=== PATIENT | male | born 1965 | race Caucasian/White ===

== ENCOUNTER → 2019-05-29 | Outpatient (CLI) | payer OTHER ==
[~2019-05-29] MED LIST: ACET-704 PO; MULT1CAP15 PO
--- NOTE | 2019-05-29 21:40 | PAIN ---
DATE OF SERVICE: 05/29/2019 INITIAL CONSULTATION FOR PAIN CLINIC CHIEF COMPLAINT: Low back pain, right greater than left. HISTORY OF PRESENT ILLNESS: This is a 53-year-old male who presents with history of pain in the low back, right side for about 4 years, not a result of any specific injury or action he is aware of, but much more noticeable with bending, stooping, weightbearing, especially with extension of the lumbar spine and axial loading in the low back. The patient reports the pain becoming more constant, sharp, stabbing, intermittent in intensity, worse with activity, bending, stooping or driving for long periods. The patient reports it does not awaken him from sleep at night, better with sitting or lying down, does not affect his bowel or bladder control or ability to walk significantly. He has had some stretching and therapy in the past, but nothing recently. He is doing stretching and strengthening on his own; however, with some heat application as well in the low back. He tried Tylenol No. 3. Also, hydrocodone, Advil which did not help significantly. He is also taking a muscle relaxer which his primary care physician has given him, which helps only very mildly as well. The patient continues to do stretching and strengthening every day. Reports that the only way to get through the pain is doing repetitive stretching of his low back and heat application. The patient reports no loss of motor function. Reports disability rating from 0-10, 10 being the worst, is a 5 with family and home responsibilities, 8 with recreation, 6 with social activity, occupation and self-care, 4 with sexual behavior, 7 with life support activities. He did have an MRI scan of the lumbar spine showing diffuse lumbar spondylosis, most significant disease present at L3-L4 and L4-L5, generalized disk bulge eccentric towards the left with [id number] left neural foraminal narrowing at each level. PAST MEDICAL HISTORY: Significant for arthritis, depression. PREVIOUS SURGERY: Includes wisdom teeth extraction. CURRENT MEDICATIONS: Include Tylenol No. 3, [id number] Advil, Tylenol and muscle relaxer he is unsure of the name. ALLERGIES: THE PATIENT IS ALLERGIC TO TRAMADOL. FAMILY HISTORY: Significant for no major medical conditions or history that he lists. SOCIAL HISTORY: The patient drinks about 6 beers a day, does not use any illegal, illicit or recreational drugs. Does not smoke, does not use any other substances. He is and lives with his spouse, has 3 children living at home, lives in [place], [place]. Works as a box truck owner operator. REVIEW OF SYSTEMS: The patient's review of systems is positive for those items mentioned in history of present illness. All systems are reviewed and otherwise negative. It is complete, full and well documented on the patient's chart. PHYSICAL EXAMINATION: VITAL SIGNS: The patient's blood pressure is 156/86, pulse 83, respirations 16, temperature 98.2 degrees Fahrenheit, height is 6 feet and weight is 240 pounds. GENERAL: The patient is awake, alert, oriented, appropriate, very pleasant demeanor. HEENT: Shows normocephalic, atraumatic. Extraocular movements are intact and symmetrical. Oral cavity: Mucous membranes moist and pink. Dentition is intact. NECK: Shows anterior throat supple without palpable lymphadenopathy noted. Swallow reflex symmetrical. CHEST: Shows normal on inspection. Breath sounds are clear bilaterally. HEART: Shows S1, S2 clear. No murmurs auscultated. ABDOMEN: Soft, nontender, nondistended. No palpable organomegaly is noted. No rebound or guarding demonstrated. BACK: Shows spine grossly in the midline. Normal-appearing thoracic kyphosis and lumbar lordotic curvature. Lumbar paraspinous muscle shows symmetrical on inspection, with palpation shows some moderate tenderness diffusely bilaterally going diffusely without significant radiation. The patient's sacroiliac region as well as spinous processes are nontender with palpation as well. The patient has good rotational motion of lumbar spine with some moderate tenderness with rotation past 10 degrees to the right as well as extension very significant pain on the right side greater than the left with extension greater than 10 degrees, better with forward flexion and left lateral rotation is mildly tender. EXTREMITIES: The patient's lower extremities show deep tendon reflexes at 2+ in the patellar, 1+ tendo-calcaneus tendons. Motor exam is strong with 5/5 dorsiflexion, extension, quadriceps and hamstring flexion symmetrical. Peripheral pulses are 1+ posterior tibia. No peripheral edema is noted. Lower extremities are warm and dry to touch, equal in color and appearance. Straight leg raising noted to be negative for reproduction of radicular symptoms. Gaenslen's and Eduardo's maneuvers are negative bilaterally as well. The patient's skin shows warm and dry, good turgor. No edema. No sores, rashes or bruising throughout. IMPRESSION: This is a 53-year-old male with: 1. Approximately 4-year history of history of low back pain, worse on the right than the left without radiation to lower extremities. 2. Arthritis. 3. History of depression. 4. MRI scan of lumbar spine as noted. PLAN: Options were discussed with the patient including conservative medical managements, physical therapies and interventional techniques. He would like to pursue interventional techniques. We discussed lumbar facet joint injections on the right and left sides. He is having some pain on both sides of the low back consistent with axial loading of the lumbar spine and significant increase in pain consistent with facet syndrome and without radiation to lower extremities. The patient will continue doing strengthening and stretching exercises on his own as well as heat application to the low back. The patient will also try Medrol Dosepak. The patient was given instruction as well as side effects to be aware of with the medication and will plan on bilateral L4-L5 and L5-S1 facet joint injections on the patient's return. DANISHA MASON MD DR: HAYLEY/keshia JOB#: [id number] / [id number]
== END | disposition home or self-care (01) ==
LOC: PNCL 12:37
PROVIDERS: ATTEND Anesthesiology
DX: M54.5 Low back pain (principal); F32.9 Major depressive disorder, single episode, unspecified; M19.90 Unspecified osteoarthritis, unspecified site; Z88.8 Allergy status to other drugs, medicaments and biological substances
CPT/HCPCS: G0463

== ENCOUNTER → 2019-06-12 | Outpatient (CLI) | payer OTHER ==
[~2019-06-12] MED LIST changes: +BUPIVACAINE MPF 0.25% 10 ML VIAL. ONE; +IOHEXOL 180 MG/ML 10 ML VIAL. ONE; +methylPREDNISolone ACETATE 40 MG/ML VIAL. ONE; +methylPREDNISolone ACETATE 80 MG/ML VIAL. ONE
--- NOTE | 2019-06-13 01:47 | PAIN ---
DATE OF SERVICE: 06/12/2019 PROGRESS NOTE FOR PAIN CLINIC DIAGNOSES: Lumbar spondylosis with lumbar and lumbosacral degenerative disk disease. HISTORY OF PRESENT ILLNESS: The patient is a 53-year-old male who returns for followup status post initial evaluation and preauthorization for bilateral lumbar facet joint injections. The patient has acquired that now and would like to proceed, still with pain, mainly on the right, but present bilaterally in the low back. The patient reports this as a 4-5 on a scale of 10 at its worst over the past week, 4-5 on an average, 2 at its least, and it is a 5 today. The patient reports it is aching, sharp, dull, and tight across the low back. No significant change from previous exam. The patient reports no new motor or sensory deficits, no new bowel or bladder incontinence or other complaints, worse with extension of the lumbar spine and axial loading, standing, walking, changing positions or sitting in the car for more than 20-30 minutes and it can exacerbate the pain as well. The patient is better with lying down. It does not generally awaken him from sleep at night recently. PHYSICAL EXAMINATION: VITAL SIGNS: The patient's blood pressure is 148/88, pulse 85, respirations 16, temperature 98.9 degrees Fahrenheit, and weight is 241 pounds. GENERAL: The patient is awake, alert, oriented, appropriate, and very pleasant demeanor. HEENT: Shows normocephalic, atraumatic. Extraocular movements are intact and symmetrical. Oral cavity shows mucous membranes moist and pink. Dentition is intact. NECK: Shows anterior throat supple without palpable lymphadenopathy noted. Swallow reflex symmetrical. CHEST: Shows normal on inspection. Breath sounds are clear to auscultation bilaterally. HEART: Shows S1 and S2 clear. No murmurs auscultated. ABDOMEN: Soft, nontender, and nondistended. BACK: Shows spine grossly in the midline. Lumbar paraspinous muscle shows symmetrical on inspection, with palpation shows some moderate tenderness diffusely in the middle and lower distribution of the paraspinous muscles, more on the right than the left, but is symmetrical without evidence of atrophy or hypertrophy. The patient has good rotational motion, but moderate tenderness with right lateral rotation past 10 degrees as well as extension of the lumbar spine with significant pain bilaterally, again worse on the right than the left. It is better with forward flexion at 45 degrees. EXTREMITIES: The patient's lower extremities show deep tendon reflexes are 2+ in the patellar and tendo-calcaneus tendons are 1+. Motor exam is strong with 5/5 dorsiflexion, extension, quadriceps and hamstring flexion. Peripheral pulses are 1+ posterior tibia. No peripheral edema is noted bilaterally. Options were discussed with the patient. The patient's old chart was reviewed as well as his current medication regimen updated. Current review of systems is updated today as well. We will proceed with bilateral L4-L5 and L5-S1 facet joint injections with fluoroscopic guidance. Risks were again discussed including, but not limited to bleeding, infection, possibility of epidural hematoma, subsequent neurological compromise, dural puncture, headaches, spinal cord and/or nerve damage, side effects of steroid medication and poor results regarding pain control. The patient understands and wished to proceed. The patient will return to clinic in approximately 2 weeks for followup. He was counseled on return appointment, activity level and side effects to be aware of. DIAGNOSIS: Lumbar and lumbosacral spondylosis. PROCEDURE: Bilateral L4-L5 and L5-S1 facet joint injections using C-arm fluoroscopic guidance under sterile prep and drape using local anesthetic. MEDICATION INJECTED: A total of 120 mg Depo-Medrol plus 4 mL of 0.25% bupivacaine and 2 mL of contrast. CONDITION AT DISCHARGE: Stable. The patient tolerated procedure well and had no complications. DANISHA MASON MD DR: HAYLEY/keshia JOB#: [id number] / [id number]
== END ==
LOC: PNCL 13:40
PROVIDERS: ATTEND Anesthesiology
DX: M47.817 Spondylosis without myelopathy or radiculopathy, lumbosacral region (principal); M51.37 Other intervertebral disc degeneration, lumbosacral region
CPT/HCPCS: 64493; 64494; J1030; J1040; J3490; Q9965

== ENCOUNTER → 2019-06-26 | Outpatient (CLI) | payer OTHER ==
[~2019-06-26] MED LIST changes: -BUPIVACAINE MPF 0.25% 10 ML VIAL. ONE; -IOHEXOL 180 MG/ML 10 ML VIAL. ONE; -methylPREDNISolone ACETATE 40 MG/ML VIAL. ONE; -methylPREDNISolone ACETATE 80 MG/ML VIAL. ONE
--- NOTE | 2019-06-26 23:03 | PAIN ---
DATE OF SERVICE: 06/26/2019 PROGRESS NOTE FOR PAIN CLINIC DIAGNOSES: Lumbar spondylosis with lumbar and lumbosacral spondylosis and degenerative disk disease. HISTORY OF PRESENT ILLNESS: The patient is a 53-year-old male who returns for followup status post bilateral L4-L5 and L5-S1 facet joint injections on 06/12/2019. The patient did very well and reports about 90% improvement overall after the injection, still about 90% after 2 weeks on followup today. The patient reports he has been increasing his activity with greater ease and comfort, doing work activities, household activities, reaching, bending with much greater ease and comfort, sleeping well at night, it does not awaken him from sleep, and doing pretty much all of his normal activities as he pleases without any significant limitation. The patient reports his pain is worse at a 2 on a scale of 10 in the past week, averages 0-1 and least as a 0, currently it is 0 on a scale of 10. The patient reports it is aching, dull and tight when it does occur very infrequently. The patient did some raking of leaves and uses more to take up leaves in the yard about a week ago with no exacerbation of pain, which normally, he reports, would have been significant before he would have had to rest for the next day or so. The patient is very pleased with his progress, reports no new motor or sensory deficits, no bowel or bladder incontinence or other complaints. PHYSICAL EXAMINATION: VITAL SIGNS: The patient's blood pressure is 144/95, pulse 72, respirations 18, temperature is 98.2 degrees Fahrenheit, height is 6 feet, and weight is 238 pounds. GENERAL: The patient is awake, alert, oriented, appropriate, very pleasant demeanor. HEENT: Head is normocephalic, atraumatic. Extraocular movements are intact and symmetrical. Oral cavity: Mucous membranes moist and pink. Dentition is intact. NECK: Shows anterior throat supple without palpable lymphadenopathy noted. Swallow reflex symmetrical. CHEST: Shows normal on inspection. Breath sounds are clear bilaterally. HEART: Shows S1, S2 clear. No murmurs auscultated. ABDOMEN: Soft, nontender, nondistended. No palpable organomegaly is noted. No rebound or guarding demonstrated. BACK: Midline lumbar paraspinous muscle shows symmetrical on inspection, with palpation shows some very mild tenderness with prolonged deep palpation in the lower lumbar distribution bilaterally. No atrophy or hypertrophy. No asymmetry. The patient has full rotational motion of lumbar spine, both laterally greater than 10 degrees right and left as well as extension greater than 10 degrees with only minimal exacerbation of pain. No pain with forward flexion at 45 degrees. EXTREMITIES: Lower extremities show deep tendon reflexes at 2+ in the patellar, 1+ tendo-calcaneus tendons. Motor exam is strong with 5/5 dorsiflexion, extension and equal. Peripheral pulses are 1+. No peripheral edema is noted. DISCUSSION: Options were discussed with the patient. The patient's old chart was reviewed as his current medication regimen updated. Current review of systems updated today as well. We will hold on any further injections at this time as the patient has gotten 90% improved over the past 2 weeks. We did discuss repeating facet joint injections if the pain returns and the patient was encouraged to increase his activity as tolerated with some caution, but to do what is comfortable. The patient will continue with stretching and strengthening exercises as well as he has been doing this daily and walking daily. He will return to clinic on an as-needed basis at this time. DANISHA MASON MD DR: HAYLEY/keshia JOB#: [id number] / [id number]
== END | disposition home or self-care (01) ==
LOC: PNCL 14:41
PROVIDERS: ATTEND Anesthesiology
DX: M51.37 Other intervertebral disc degeneration, lumbosacral region (principal); M47.817 Spondylosis without myelopathy or radiculopathy, lumbosacral region
CPT/HCPCS: G0463

== ENCOUNTER → 2019-11-08 | Outpatient (CLI) | payer OTHER ==
--- NOTE | 2019-11-08 16:13 | PAIN ---
DATE OF SERVICE: 11/08/2019 PROGRESS NOTE FOR PAIN CLINIC DIAGNOSES: Lumbar and lumbosacral spondylosis with lumbar degenerative disk disease. HISTORY OF PRESENT ILLNESS: The patient is a 54-year-old male who returns for followup status post lumbar facet joint injections, most recently on 06/12/2019, patient did very well with about 90% improvement. We had seen him again on 06/26, he was doing very well. We decided to leave and the return as needed. The patient reports that now over the past month or so, the pain began to return in his low back, not to the point where it was back in May, but still noticeable bilaterally in the low back, right and left, somewhat worse on the right side, but present bilaterally. The patient reports it is becoming more noticeable with sitting for long periods, walking, changing positions, especially with extension of the lumbar spine and axial loading of the low back. The patient reports the pain was a 9 on a scale of 10 at its worst over the past week, 6 on average, 2 at its least and is a 6 today. The patient reports it is aching and tight, on and off in intensity, but always present. The patient reports it is generally better with sitting or lying down, as long as not for too long. It does not generally awaken him from sleep at night. The patient reports no specific radiation to the lower extremities at this time. PHYSICAL EXAMINATION: VITAL SIGNS: The patient's blood pressure is 142/100, pulse 75, respirations 18, temperature 99.2 degrees Fahrenheit, height 6 feet, weight is 241 pounds. GENERAL: The patient is awake, alert, oriented, appropriate, very pleasant demeanor. HEENT: Shows normocephalic, atraumatic. Extraocular movements are intact and symmetrical. Oral cavity: Mucous membranes moist and pink. Dentition is intact. NECK: Shows anterior throat supple without palpable lymphadenopathy noted. Swallow reflex symmetrical. CHEST: Shows normal on inspection. Breath sounds are clear bilaterally. HEART: Shows S1, S2 clear. No murmurs auscultated. ABDOMEN: Soft, nontender, nondistended. No palpable organomegaly is noted. No rebound or guarding demonstrated. BACK: Shows spine grossly in the midline. Normal-appearing thoracic kyphosis and lumbar lordotic curvature. Lumbar paraspinous muscle shows symmetrical on inspection, on palpation shows some moderate tenderness diffusely bilaterally but only diffusely without significant radiation. The patient has good rotational motion of lumbar spine, both laterally, right and left with some moderate tenderness with right and left lateral rotation slightly more to the right than the left at greater than 10 degrees. Significant tenderness with extension greater than 10 degrees with pain in the right and left low back, but without radiation to the lower extremities. The patient shows no specific tenderness over the sacrum or sacroiliac regions. EXTREMITIES: The patient's lower extremities show deep tendon reflexes at 2+ in the patellar, 1+ tendo-calcaneus tendons. Motor exam is strong with 5/5 dorsiflexion, extension, quadriceps and hamstring flexion symmetrical. Peripheral pulses are 1+ posterior tibia. No peripheral edema is noted bilaterally. Options were discussed with the patient. The patient's old chart was reviewed as his current medication regimen updated. Current review of systems updated today as well. We will proceed with preauthorization for bilateral L4-L5 and L5-S1 facet joint injections. The patient did very well with these when last performed in May with several months of decreased pain by about 90%. The patient will continue with stretching and strengthening exercises as he has been doing at home and will return to clinic in approximately 1 week after preauthorization. The patient was also given refill prescription for Tylenol No. 3 with instructions, side effects were discussed with medication as well. DANISHA MASON MD DR: HAYLEY/keshia JOB#: [id number] / [id number]
== END | disposition home or self-care (01) ==
LOC: PNCL 11:09
PROVIDERS: ATTEND Anesthesiology
DX: M47.817 Spondylosis without myelopathy or radiculopathy, lumbosacral region (principal); M51.36 Other intervertebral disc degeneration, lumbar region
CPT/HCPCS: G0463-25

== ENCOUNTER → 2019-11-22 | Outpatient (CLI) | payer OTHER ==
[~2019-11-22] MED LIST changes: +BUPIVACAINE MPF 0.25% 10 ML VIAL. ONE; +IOHEXOL 180 MG/ML 10 ML VIAL. ONE; +methylPREDNISolone ACETATE 40 MG/ML VIAL. ONE; +methylPREDNISolone ACETATE 80 MG/ML VIAL. ONE
--- NOTE | 2019-11-22 15:21 | PAIN ---
DATE OF SERVICE: 11/22/2019 PROGRESS NOTE FOR PAIN CLINIC DIAGNOSES: Lumbar and lumbosacral spondylosis with lumbar degenerative disk disease. HISTORY OF PRESENT ILLNESS: The patient is a 54-year-old male who returns for followup status post initial evaluation and preauthorization for lumbar facet injections today. The patient did very well on his last visit on 06/12/2019 with very good results, near 90% improvement for several months. The patient reports until about 4 weeks ago, the pain was significantly decreased. The patient has the pain returned now in the low back bilaterally, slightly worse on the right than the left, but present bilaterally, worse with extension of the lumbar spine, walking, standing, even sitting for prolonged periods, worse at the end of the day. The patient rates pain as an 8 on a scale of 10 at its worst over the past week, 6 on average, 1 at its least and is a 6 today. The patient reports it is aching, tight, dull, on and off in intensity. Generally, it does not awaken him from sleep at night, better with sitting or lying down, but sitting for prolonged periods more than 2-3 hours can exacerbate the pain as well. The patient reports no new bowel or bladder incontinence or other complaints. PHYSICAL EXAMINATION: VITAL SIGNS: The patient's blood pressure is 137/89, pulse 83, respirations 18, temperature 98.8 degrees Fahrenheit, height is 6 feet, weight is 244 pounds. GENERAL: The patient is awake, alert, oriented, appropriate, very pleasant demeanor. HEENT: Shows normocephalic, atraumatic. Extraocular movements are intact and symmetrical. Oral cavity shows mucous membranes moist and pink. Dentition is intact. NECK: Shows anterior throat supple without palpable lymphadenopathy noted. Swallow reflex symmetrical. CHEST: Shows normal on inspection. Breath sounds are clear bilaterally. HEART: Shows S1, S2 clear. No murmurs auscultated. ABDOMEN: Soft, nontender, nondistended. No palpable organomegaly is noted. No rebound or guarding demonstrated. EXTREMITIES: The patient's lower extremities show deep tendon reflexes 2+ in the patellar, 1+ tendo-calcaneus tendons. Motor exam is strong with 5/5 dorsiflexion, extension, quadriceps and hamstring flexion symmetrical. Peripheral pulses are 1+ posterior tibia. No peripheral edema is noted bilaterally. Options were discussed with the patient. The patient's old chart was reviewed as his current medication regimen updated. Current review of systems updated today as well and we will proceed with bilateral L4-L5 and L5-S1 facet joint injections today with fluoroscopic guidance. Risks were again discussed including, but not limited to bleeding, infection, possibility of epidural hematoma, subsequent neurological compromise, dural puncture, headaches, spinal cord and/or nerve damage, side effects of steroid medication and poor results regarding pain control. The patient understands and wished to proceed. The patient will return to clinic in approximately 2 weeks for followup. He was counseled on return appointment, activity level and side effects to be aware of. DIAGNOSES: Lumbar and lumbosacral spondylosis. PROCEDURE: Bilateral L4-L5 and L5-S1 facet joint injections using C-arm fluoroscopic guidance under sterile prep and drape using local anesthetic. MEDICATION INJECTED: A total of 120 mg Depo-Medrol plus 4 mL of 0.25% bupivacaine, 1 mL at each level after negative aspiration at each injection site and a total of 2 mL of contrast. CONDITION AT DISCHARGE: Stable. The patient tolerated procedure well, had no complications. DANISHA MASON MD DR: HAYLEY/keshia JOB#: [id number] / [id number]
== END ==
LOC: PNCL 13:43
PROVIDERS: ATTEND Anesthesiology
DX: M47.817 Spondylosis without myelopathy or radiculopathy, lumbosacral region (principal); M51.36 Other intervertebral disc degeneration, lumbar region
CPT/HCPCS: 64493; 64494; 64495; J1030; J1040; J3490; Q9965

== ENCOUNTER → 2020-04-10 | Outpatient (CLI) | payer OTHER ==
[~2020-04-10] MED LIST changes: -BUPIVACAINE MPF 0.25% 10 ML VIAL. ONE; -IOHEXOL 180 MG/ML 10 ML VIAL. ONE; -methylPREDNISolone ACETATE 40 MG/ML VIAL. ONE; -methylPREDNISolone ACETATE 80 MG/ML VIAL. ONE
--- NOTE | 2020-04-10 13:39 | PDOC ---
Progress Note - Pain Clinic Date of Service: DOS: DATE: 04/10/20 TIME: 13:34 Diagnosis: Dx: Lumbar and lumbosacral spondylosis with degenerative disc disease History or Present Illness: HPI: 54-year-old male returns follow-up status post bilateral L4-5 and L5-S1 facet thalia int injections most recently November 22, 2019 patient reports about 90% improvement for almost 5 weeks following the injection. Patient reports pain is returning now more on the right side than the left is been several months since injections returning now over the past few weeks in the low back itself without radiation to the lower extremities present on the left side as well but mostly on the right. This is worse with standing walking especially toward the end of the day by mouth 7 8 PM patient reports he feels good during the day but by that time the pain is increasing fairly significantly especially with extension and axial loading lumbar spine. Patient rates a 10 on scale 10 is worse over the past week 8 on average to its least is an 8 today patient describes pain as sharp and aching dull at times stabbing and becoming constant with activity. Patient reports during the day he feels fairly well as long as he keeps moving if he sits for more than about 30 minutes though the pain does exacerbate. Patient r eports it generally does not awaken her from sleep is better with laying down or short periods of time sitting. Patient ports no new motor or sensory deficits no new bowel or bladder incontinence or other complaints. Physical Exam: VS: Pressure is 141/101 pulse 79 respirations 18 temperature 90.8 F height 6 foot weight is 247 pounds PE: PHYSICAL EXAMINATION: GENERAL: The patient is awake, alert, oriented, appropriate, very pleasant demeanor HEENT: Shows normocephalic, atraumatic. Extraocular movements are intact and symmetrical. Oral cavity: Mucous membranes moist and pink. NECK: Shows anterior throat supple without palpable lymphadenopathy noted. Swallow reflex symmetrical. CHEST: Shows normal on inspection. Breath sounds are clear bilaterally, no rales rhonchi wheezes auscultated. HEART: Shows S1, S2 clear. No murmurs auscultated. ABDOMEN: Soft, nontender, nondistended, obese. No palpable organomegaly is noted. No rebound or guarding demonstrated. BACK: Shows spine grossly in the midline. Normal-appearing cervical lordotic curvature. There is slightly increased thoracic kyphosis, some minor flattening of the lumbar lordotic curvature. Lumbar paraspinous muscles show symmetrical on inspection, on palpation shows some moderate tenderness diffusely throughout the upper, middle and lower distribution of the paraspinous muscles bilaterally and also into the lower thoracic paraspinous musculature, firm and tender, but without specific trigger points, without radiation of pain. The patient has good rotational motion of the lumbar spine, both laterally as well as extension flexion with some moderate tenderness with extension at 10 degrees or greater with axial loading of the lumbar spine, right left lateral rotation shows some moderate tenderness with right lateral rotation past 10 degrees but minimal with rotation past 10 degrees on the left. Patient has good forward flexion of 45 degrees without significant pain reported. No tenderness over the spinous processes, sacrum or sacroiliac regions. EXTREMITIES: Lower extremities show deep tendon reflexes 2+ in the patellar and tendo calcaneus tendons. Motor exam is 5 on a scale of 5 with right dorsiflexion, extension, quadriceps and hamstring flexion and 5/5 on the left. Peripheral pulses are 1+ posterior tibial. No peripheral edema is noted bilaterally. Lower extremities are warm and dry to touch, equal in color and appearance. SKIN: Shows warm and dry, good turgor. No edema. No sores, rashes or bruising throughout. Procedure: Procedure: Options were discussed with the patient. Patient will chart was reviewed his current medication regimen updated current review of systems updated today as well. We will preauthorize patient for additional L4-5 and L5-S1 facet medial branch injections with C arm. As patient did very well with the last injections and has returned now of axial pain right greater than left. Patient will continue with stretching strength exercises walking daily exercise as tolerated. Patient also given prescription for Tylenol 3 with codeine with instructions side effects to be aware of. Patient return to clinic as scheduled we will plan on bilateral L4-5 and L5-S1 medial branch facet injections at that time. Medication Injected: Med Injected: None Condition at Discharge: Condition at Discharge: Condition at discharge is stable. DANISHA MASON MD Apr 10, 2020 13:39
== END ==
LOC: PNCL 12:53
PROVIDERS: ATTEND Anesthesiology
DX: M51.16 Intervertebral disc disorders with radiculopathy, lumbar region (principal); Z88.8 Allergy status to other drugs, medicaments and biological substances; Z79.899 Other long term (current) drug therapy
CPT/HCPCS: 99212; G0463

== ENCOUNTER → 2020-08-28 | Outpatient (CLI) | payer OTHER ==
[~2020-08-28] MED LIST changes: +BUPIVACAINE MPF 0.25% 10 ML VIAL. ONE; +LIDOCAINE 1% PF 2 ML VIAL. ONE; +LIDOCAINE 2% PF 5 ML VIAL. ONE; +methylPREDNISolone ACETATE 40 MG/ML VIAL. ONE; +methylPREDNISolone ACETATE 80 MG/ML VIAL. ONE
--- NOTE | 2020-08-28 14:42 | PDOC ---
Progress Note - Pain Clinic Date of Service: DOS: DATE: 08/28/20 TIME: 14:38 Diagnosis: Dx: Lumbar and lumbosacral spondylosis with lumbar degenerative disc disease History or Present Illness: HPI: 55-year-old male returns for follow-up status post bilateral lumbar facet injections with very good results approxi-90% improvement after the first injection and percent after the second injection but only lasting for about 4 to 5 weeks. Patient reports that the pain returned after about 5 weeks or so in the low back bilaterally right essentially equal to left worse with standing walking changing positions sitting for prolonged periods better with laying down generally is not awakening from sleep at night is worse with activity and standing. Patient reports is in the low back does not radiate to the lower extremities is right equal to left essentially worse with extension lumbar spine axial loading the low back as well as twisting and bending repetitively. Patient reports its aching and sharp tight across the low back again not radiating after the injections with diagnostic blocks he did very well with distance walking doing household activities work activities much greater ease and comfort and travel with greater ease and comfort as well. Patient reports no new motor or sensory deficits no new bowel or bladder incontinence or other complaints. Patient scribes pain is a 10 on scale 10 is worse over the past week 7 on average 3 at its least is a 7 today. Physical Exam: VS: Blood pressure is 138/72 pulse 91 respirations 18 temperature 98.6 F height is 6 foot weight is 243 pounds PE: PHYSICAL EXAMINATION: GENERAL: The patient is awake, alert, oriented, appropriate, very pleasant demeanor HEENT: Shows normocephalic, atraumatic. Extraocular movements are intact and symmetrical. Oral cavity: Mucous membranes moist and pink. Dentition is intact. NECK: Shows anterior throat supple without palpable lymphadenopathy noted. Swallow reflex symmetrical. CHEST: Shows normal on inspection. Breath sounds are clear bilaterally, no rales or rhonchi. HEART: Shows S1, S2 clear. No murmurs auscultated. ABDOMEN: Soft, nontender, nondistended, obese. No palpable organomegaly is noted. BACK: Shows spine grossly in the midline. Normal-appearing cervical lordotic curvature. There is slightly increased thoracic kyphosis, some flattening of the lumbar lordotic curvature. Lumbar paraspinous muscles show symmetrical on inspection, on palpation shows some moderate tenderness diffusely throughout the upper, middle and lower distribution of the paraspinous muscles without specific trigger points, without radiation of pain. The patient has good rotational motion of the lumbar spine, both laterally as well as extension and flexion, with significant pain with extension greater than 10 degrees and axial loading of the lumbar spine, right and left lateral rotation is tender as well equally right and left greater than 10 degrees without radiation of pain. No tenderness over the spinous processes, sacrum or sacroiliac regions. EXTREMITIES: Lower extremities show deep tendon reflexes 2+ in the patellar and tendo calcaneus tendons. Motor exam is 5 on a scale of 5 with right dorsiflexion, extension, quadriceps and hamstring flexion and 5/5 on the left. Peripheral pulses are 1+ posterior tibial. No peripheral edema is noted bilaterally. Lower extremities are warm and dry to touch, equal in color and appearance. SKIN: Shows warm and dry, good turgor. No edema. No sores, rashes or bruising throughout. Procedure: Procedure: Options were discussed with the patient. Patient chart reviews his current medication regimen updated current review of systems updated today as well. We will proceed with bilateral L4-5 and L5-S1 medial branch radiofrequency ablation today with fluoroscopic guidance. Risks were discussed including but not limited to: Bleeding, infection, possibility of epidural hematoma and subsequent neurological compromise, dural puncture, headaches, spinal cord and/or nerve damage, potential thermal damage to the surrounding tissues including motor nerve with permanent paralysis, and motor loss, side effects of steroid medication, and poor results regarding pain control. Patient understands and wished to proceed. Patient return to the clinic in approximate 4 weeks for follow-up, was counseled as to return appointment activity level and side effects to be aware of. Medication Injected: Med Injected: Under sterile prep and drape patient in prone position using C-arm fluoroscopic guidance patient's lumbar spine was visualized in both AP oblique and lateral views using 1% lidocaine to topically anesthetize the areas overlying the L3-4, L4-5 and L5-S1 facet joints at the point of the medial branches. Using a 22- gauge insulated radiofrequency needle with curved tips and stylette, the needles were advanced to contact the region of the facet with the medial branch targets. This was repeated at the L3-4 L4-5 and L5-S1 levels. Stylette was removed and using radiofrequency probe inserted into each needle individually at each level and then motor tested with no motor stimulation of the lower extremity. Patient did have some multifidus musculature contraction in the lumbar spine only but without radiation. At this time 1 cc of 2% lidocaine was then injected in each needle after motor testing but prior to radiofrequency ablation. Needle position was confirmed continuously throughout the radiofrequency ablation with both AP oblique and lateral views at each level. At this time radiofrequency ablation was carried out each level for 60 seconds at 80 C x 2 at each level w ith the tip of the needle turned 90 degrees after the first 60 seconds and then subsequent 60 seconds of radiofrequency ablation. Once radiofrequency ablation was completed solution containing 0.25% bupivacaine 1 cc and 20 mg Depo-Medrol was injected each level. Needle was then withdrawn. The procedure was repeated for the contralateral side as described as well. Patient had no paresthesias throughout the procedure no radiation of pain into the lower extremities no lower extremity motor response with motor testing bilaterally. Please see radiofrequency flowsheet for levels, temperatures, impedance, etc. Condition at Discharge: Condition at Discharge: Condition at discharge stable, patient tolerated procedure well and had no complications. DANISHA MASON MD Aug 28, 2020 14:42
== END | disposition home or self-care (01) ==
LOC: PNCL 13:07
PROVIDERS: ATTEND Anesthesiology
DX: M47.817 Spondylosis without myelopathy or radiculopathy, lumbosacral region (principal); M51.36 Other intervertebral disc degeneration, lumbar region; Z79.899 Other long term (current) drug therapy; Z88.8 Allergy status to other drugs, medicaments and biological substances
CPT/HCPCS: 64635; 64636; J1030; J1040; J3490; 77002

== ENCOUNTER → 2021-01-01 | Outpatient (CLI) | payer OTHER ==
[~2021-01-01] MED LIST changes: -BUPIVACAINE MPF 0.25% 10 ML VIAL. ONE; -LIDOCAINE 1% PF 2 ML VIAL. ONE; -LIDOCAINE 2% PF 5 ML VIAL. ONE; -methylPREDNISolone ACETATE 40 MG/ML VIAL. ONE; -methylPREDNISolone ACETATE 80 MG/ML VIAL. ONE
--- NOTE | 2021-01-01 14:05 | PDOC ---
Progress Note - Pain Clinic Date of Service: DOS: DATE: 01/01/21 TIME: 13:58 Diagnosis: Dx: Lumbar and lumbosacral spondylosis Lumbar radiculopathy with lumbar degenerative disc disease History or Present Illness: HPI: 55-year-old male returns for follow-up status post lumbar facet medial branch blocks and radiofrequency ablation on August 28, 2020. Patient reports is about 90% improvement but only for about a month after the procedure pain returned when he was doing some work on his [place] and the pain returned fairly quickly in the low back worse on the right than the left but also now radiating to bilateral lower extremities again worse on the right side than the left in the posterior gluteus posterior thigh posterior lateral thigh anterior thigh on the right side seminal left groin but mostly in the left low back. Patient reports is rating the right leg stabbing aching quality aching and sharp in the low back itself stabbing and shooting in the legs radiating can be constant or severe at times with activity. Patient reports is worse in the mornings and then worse in the evenings during the day when he is moving is not as bad as much more exacerbation was walking standing changing position especially bending or stooping or lifting items with the low back. Patient reports it wakes him from sleep about once or twice a night patient reports initially was doing much better with walking doing household activities work activities travel with greater ease and comfort now becoming much more debilitating and he is giving up some activities because of the pain. Patient has recently seen a neurosurgeon who is recommending conservative treatment at this time and in light of his previous treatment is recommending epidural steroid injection. Patient reports he has been diagnosed with hypothyroidism and does have Synthroid he is picking at that prescription later today has not started it yet. Reports he still doing exercises stretching and strengthening at home as he is learned in the past from physical therapy and whether continues to do these had not been significantly pain as well. Patient still taking Tylenol with codeine on a as needed basis with one bout 2-3 times a week. Physical Exam: VS: Blood pressure is 147/91 pulse 79 respirations 18 temperature 98.9 F height is 6 foot weight is 243 pounds PE: PHYSICAL EXAMINATION: GENERAL: The patient is awake, alert, oriented, appropriate, very pleasant in demeanor. HEENT: Shows normocephalic, atraumatic. Extraocular movements are intact and symmetrical. Oral cavity: Mucous membranes moist and pink. Dentition is intact. NECK: Shows anterior throat supple without palpable lymphadenopathy noted. Swallow reflex symmetrical. CHEST: Shows normal on inspection. Breath sounds are clear bilaterally. HEART: Shows S1, S2 clear. No murmurs auscultated. ABDOMEN: Soft, nontender, nondistended, obese. BACK: Shows spine grossly in the midline. Normal-appearing cervical lordotic curvature. There is slightly increased thoracic kyphosis, some slight flattening of the lumbar lordotic curvature. Lumbar paraspinous muscles show symmetrical on inspection, on palpation shows some moderate tenderness diffusely throughout the upper, middle and lower distribution of the paraspinous muscles without specific trigger points, without radiation of pain. The patient has good rotational motion of the lumbar spine, both laterally as well as extension and flexion with only mild pain with extension but not with forward flexion right or left lateral rotation. No tenderness over the spinous processes, sacrum or sacroiliac regions. EXTREMITIES: Lower extremities show deep tendon reflexes 2+ in the patellar and tendo calcaneus tendons. Motor exam is 5 on a scale of 5 with right dorsiflexion, extension, quadriceps and hamstring flexion and 5/5 on the left. Peripheral pulses are 1+ posterior tibial. No peripheral edema is noted bilate rally. Lower extremities are warm and dry to touch, equal in color and appearance. Straight leg raise noted to be positive on the right about 45 degrees, decreased with knee flexion, left side is negative. SKIN: Shows warm and dry, good turgor. No edema. No sores, rashes or bruising throughout. Procedure: Procedure: Options were discussed with patient. Patient chart was reviewed as was his current medication regimen and updated and current review of systems updated today. We will preauthorize patient for a lumbar epidural steroid injection as patient has clinical radicular symptoms in the right lower extremity L4-5 dermatomal distribution. Patient continue at this time with strengthening and stretching exercise as well as oral analgesics as currently and once preauthorized we will plan on translaminar approach L4-5 level lumbar epidural steroid injection at that time. Medication Injected: Med Injected: None Condition at Discharge: Condition at Discharge: Condition at discharge is stable. DANISHA MASON MD Jan 01, 2021 14:05
== END | disposition home or self-care (01) ==
LOC: PNCL 13:05
PROVIDERS: ATTEND Anesthesiology
DX: M51.16 Intervertebral disc disorders with radiculopathy, lumbar region (principal); M47.27 Other spondylosis with radiculopathy, lumbosacral region; Z79.899 Other long term (current) drug therapy; Z88.8 Allergy status to other drugs, medicaments and biological substances
CPT/HCPCS: 99212; G0463

== ENCOUNTER → 2021-02-06 | Outpatient (CLI) | payer OTHER ==
[~2021-02-06] MED LIST changes: +ACET1TAB33 PO; +IOHEXOL 180 MG/ML 10 ML VIAL. ONE; +LEVO25TA4 PO; +methylPREDNISolone ACETATE 80 MG/ML VIAL. ONE
--- NOTE | 2021-02-06 13:52 | PDOC ---
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 Patient reports pain the low back left lower extremity posterior gluteus posterior lateral thigh left anterior thigh anteromedial thigh with walking standing changing positions better with sitting or resting but wakes him from sleep least once at night patient reports does better with Tylenol 3 also stre tching strength exercises helped and sitting and relaxing seems to help as well it is much worse when he is on his feet walking standing. Patient reports the pain is severe can be stabbing aching the back of the leg radiating shooting as well on the left side. Patient reports no new motor or sensory deficits no new bowel or bladder incontinence. Physical Exam: VS: Blood pressure is 139/91 pulse 81 respirations 18 temperature 98.3 F weight is 243 pounds PE: PHYSICAL EXAMINATION: GENERAL: The patient is awake, alert, oriented, appropriate, very pleasant in demeanor HEENT: Shows normocephalic, atraumatic. Extraocular movements are intact and symmetrical. Oral cavity: Mucous membranes moist and pink. Dentition is intact. NECK: Shows anterior throat supple without palpable lymphadenopathy noted. Swallow reflex symmetrical. CHEST: Shows normal on inspection. Breath sounds are clear bilaterally. HEART: Shows S1, S2 clear. No murmurs auscultated. ABDOMEN: Soft, nontender, nondistended. No palpable organomegaly is noted. BACK: Shows spine grossly in the midline. Normal-appearing cervical lordotic curvature. There is slightly increased thoracic kyphosis, some minor flattening of the lumbar lordotic curvature. Lumbar paraspinous muscles show symmetrical on inspection, on palpation shows some moderate tenderness diffusely throughout the upper, middle and lower distribution of the paraspinous muscles, but without specific trigger points, without radiation of pain. The patient has good rotational motion of the lumbar spine, both laterally as well as extension and flexion with only mild pain with extension not forward flexion. No tenderness over the spinous processes, sacrum or sacroiliac regions. EXTREMITIES: Lower extremities show deep tendon reflexes 2+ in the patellar and tendo calcaneus tendons. Motor exam is 5 on a scale of 5 with right dorsiflexion, extension, quadriceps and hamstring flexion and 5/5 on the left. Peripheral pulses are 1+ posterior tibial. No peripheral edema is noted bilaterally. Lower extremities are warm and dry to touch, equal in color and appearance. SKIN: Shows warm and dry, good turgor. No edema. No sores, rashes or bruising throughout. Procedure: Procedure: Options discussed with the patient. Patient's old chart was reviewed his current medication regimen updated current review of systems updated today as well. We will proceed with a lumbar epidural steroid injection today with fluoroscopic guidance. Risks were discussed including but not limited to: Bleeding, infection, possibility of epidural hematoma and subsequent neurological compromise, dural puncture, headaches, spinal cord and/or nerve damage, side effects of steroid medication, and poor results regarding pain control. Patient understands and wished to proceed. Patient will return to clinic in approximate 2 weeks for follow-up, was counseled as to return appointment activity level and side effects to be aware of. Medication Injected: Med Injected: Procedure is lumbar epidural steroid injection under local anesthetic using sterile prep and drape at the L4-5 level using C-arm fluoroscopic guidance in both AP and lateral views medications injected is 120 mg Depo-Medrol +10mL preservative-free normal saline and 2 mL contrast- condition at discharge is stable patient tolerated procedure well had no complications. Condition at Discharge: Condition at Discharge: Condition at discharge stable, patient already the procedure well and had no complications. DANISHA MASON MD Feb 06, 2021 13:52
--- NOTE | 2021-02-06 13:53 | PDOC4 ---
Procedure Note: ICD 10 Code: ICD 10 Code: M54.16 M51.36 7.816 Procedure Note: Patient was consented for lumbar epidural steroid injection with fluoroscopic guidance. Risks were discussed including but not limited to: Bleeding, infection, possibility of epidural hematoma and subsequent neurological compromise, dural puncture, headaches, spinal cord and/or nerve damage, side effects of steroid medication, and poor results regarding pain control. Patient understands and wished to proceed. Procedure is lumbar epidural steroid injection under local anesthetic using st erile prep and drape at the L4-5 level using C-arm fluoroscopic guidance in both AP and lateral views medications injected is 120 mg Depo-Medrol +10mL preservative-free normal saline and 2 mL contrast- condition at discharge is stable patient tolerated procedure well had no complications. DANISHA MASON MD Feb 06, 2021 13:53
== END ==
LOC: PNCL 13:07
PROVIDERS: ATTEND Anesthesiology
DX: M51.16 Intervertebral disc disorders with radiculopathy, lumbar region (principal); M47.816 Spondylosis without myelopathy or radiculopathy, lumbar region
CPT/HCPCS: 62323; J1040; Q9965

== ENCOUNTER → 2021-03-06 | Outpatient (CLI) | payer OTHER ==
[~2021-03-06] MED LIST changes: -IOHEXOL 180 MG/ML 10 ML VIAL. ONE; -methylPREDNISolone ACETATE 80 MG/ML VIAL. ONE
--- NOTE | 2021-03-06 12:17 | PDOC ---
Progress Note - Pain Clinic Date of Service: DOS: DATE: 03/06/21 TIME: 12:14 Diagnosis: Dx: Lumbar radiculopathy with lumbar degenerative disc disease and lumbar spondylosis History or Present Illness: HPI: 55-year-old male returns for follow-up status post lumbar epidural straight injection x1. Patient reports about 90% improvement for the first 2 and half weeks the pain returning slightly now in the low back and left lower extremity but only slightly patient reports in each day is more noticeable but initially was doing much better with distance walking doing household activities traveling with greater ease and comfort and work activities patient reports that by the end of the day the pain is fairly significant now over the past few days he is taking half of a Tylenol 3 at night which helps him sleep. Patient reports the pain is a 7 on scale 10 is worse over the past week 5 on average 1 its least is a 5 today patient was aching sharp dull in the back shooting radiating in the left lower extremity lateral thigh anterior thigh medial thigh as well as across the low back. Patient reports no loss of motor function no bowel or bladder incontinence. Physical Exam: VS: Blood pressure is 151/76 pulse 84 respirations 18 temperature is 98.4 F weight is 239 pounds PE: PHYSICAL EXAMINATION: GENERAL: The patient is awake, alert, oriented, appropriate, very pleasant in demeanor HEENT: Shows normocephalic, atraumatic. Extraocular movements are intact and symmetrical. Oral cavity: Mucous membranes moist and pink. Dentition is intact. NECK: Shows anterior throat supple without palpable lymphadenopathy noted. Swallow reflex symmetrical. CHEST: Shows normal on inspection. Breath sounds are clear bilaterally, distant no rales or rhonchi. HEART: Shows S1, S2 clear. No murmurs auscultated. ABDOMEN: Soft, nontender, nondistended, obese. No palpable organomegaly is noted. BACK: Shows spine grossly in the midline. Normal-appearing cervical lordotic curvature. There is slightly increased thoracic kyphosis, some minor flattening of the lumbar lordotic curvature. Lumbar paraspinous muscles show symmetrical on inspection, on palpation shows some moderate tenderness diffusely throughout the upper, middle and lower distribution of the paraspinous muscles, but without specific trigger points, without radiation of pain. The patient has good rotational motion of the lumbar spine, both laterally as well as extension and flexion without significant difficulty. EXTREMITIES: Lower extremities show deep tendon reflexes 2 in the patellar and tendo calcaneus tendons. Motor exam is 5 on a scale of 5 with right dorsiflexion, extension, quadriceps and hamstring flexion and 5/5 on the left. Peripheral pulses are 1+ posterior tibial. No peripheral edema is noted bilaterally. Lower extremities are warm and dry to touch, equal in color and appearance. SKIN: Shows warm and dry, good turgor. No edema. No sores, rashes or bruising throughout. Procedure: Procedure: Options were discussed with the patient. Patient's old chart was reviewed as his current medication regimen updated current review of systems updated today as well. We will preauthorize patient for second lumbar epidural steroid injection as he did very well for the first 1 but with persistent radiculopathy in L4-5 dermatomal distribution on the left side. Patient continue with stretc lorna and strength exercise as well as oral analgesics as currently. Once approved, patient will return for translaminar approach L4-5 level lumbar epidural steroid injection with fluoroscopic guidance at that time. Medication Injected: Med Injected: None Condition at Discharge: Condition at Discharge: Condition at discharge is stable. DANISHA MASON MD Mar 06, 2021 12:17
== END ==
LOC: PNCL 11:40
PROVIDERS: ATTEND Anesthesiology
DX: M51.16 Intervertebral disc disorders with radiculopathy, lumbar region (principal); M47.816 Spondylosis without myelopathy or radiculopathy, lumbar region
CPT/HCPCS: 99212; G0463

== ENCOUNTER → 2021-03-20 | Outpatient (CLI) | payer OTHER ==
[~2021-03-20] MED LIST changes: +IOHEXOL 180 MG/ML 10 ML VIAL. ONE; +methylPREDNISolone ACETATE 80 MG/ML VIAL. ONE
--- NOTE | 2021-03-20 09:42 | PDOC ---
Progress Note - Pain Clinic Date of Service: DOS: DATE: 03/20/21 TIME: 09:39 Diagnosis: Dx: Lumbar radiculopathy with lumbar degenerative disc disease and lumbar spondylosis History or Present Illness: HPI: 55-year-old male returns for follow-up status post lumbar epidural steroid injection x1 which is doing better with about a 80% improvement overall but now down about 65% improvement in the low back and left lower extremity patient reports he had a new finding of some pain on the right side now especially when he is laying down at night and right posterior gluteus which is not there previously but only when he was laying down only happened a few times since his last visit patient reports that consistently though has pain in the left leg posterior gluteus lateral thigh anterior thigh medial thigh describes aching and dull in the back sharp and shooting in the in the leg tingling can be radiating constant can be severe with activity although still doing much better patient reports he still very pleased with his progress increase his activity distance walking doing household activities work activities much greater ease and comfort and for the most part sleeping well at night except with a new pain now. Right side as well. Patient reports no bowel or bladder incontinence. Physical Exam: VS: Blood pressure is 120/86 pulse 87 respirations 18 temperature 99.0 F height is 6 foot weight is 235 pounds. PE: PHYSICAL EXAMINATION: GENERAL: The patient is awake, alert, oriented, appropriate, very pleasant in demeanor HEENT: Shows normocephalic, atraumatic. Extraocular movements are intact and symmetrical. Oral cavity: Mucous membranes moist and pink. Dentition is intact. NECK: Shows anterior throat supple without palpable lymphadenopathy noted. Swallow reflex symmetrical. CHEST: Shows normal on inspection. Breath sounds are clear bilaterally, no rales rhonchi wheezes auscultated. HEART: Shows S1, S2 clear. No murmurs auscultated. ABDOMEN: Soft, nontender, nondistended, obese. No palpable organomegaly is noted. BACK: Shows spine grossly in the midline. Normal-appearing cervical lordotic curvature. There is slightly increased thoracic kyphosis, some flattening of the lumbar lordotic curvature, with well-healed surgical scarring noted. Lumbar paraspinous muscles show symmetrical on inspection, on palpation shows some moderate tenderness diffusely throughout the upper, middle and lower distribution of the paraspinous muscles bilaterally, but without specific trigger points, without radiation of pain. The patient has good rotational motion of the lumbar spine, both laterally as well as extension and flexion without significant difficulty. EXTREMITIES: Lower extremities show deep tendon reflexes 2+ in the patellar and tendo calcaneus tendons. Motor exam is 5 on a scale of 5 with right dorsiflexion, extension, quadriceps and hamstring flexion and 5/5 on the left. Peripheral pulses are 1+ posterior tibial. No peripheral edema is noted bilaterally. Lower extremities are warm and dry. SKIN: Shows warm and dry, good turgor. No edema. No sores, rashes or bruising throughout. Procedure: Procedure: Options were discussed with patient patient's old chart was reviewed as his current medication regimen updated current view of systems updated today as well. We will proceed with a lumbar epidural steroid injection today with flu oroscopic guidance risks were discussed including but not limited to: Bleeding, infection, possibility of epidural hematoma and subsequent neurological compromise, dural puncture, headaches, spinal cord and/or nerve damage, side effects of steroid medication, and poor results regarding pain control. Patient understands and wished to proceed. Patient will return to the clinic in a pproximate 2 weeks for follow-up, was counseled as return appointment, activity, and side effects to be aware of. Medication Injected: Med Injected: Procedure is lumbar epidural steroid injection under local anesthetic using sterile prep and drape at the L4-5 level using C-arm fluoroscopic guidance in both AP and lateral views medications injected is 120 mg Depo-Medrol +10mL preservative-free normal saline and 2 mL contrast- condition at discharge is stable patient tolerated procedure well had no complications. Condition at Discharge: Condition at Discharge: Condition at discharge stable, pain tolerated the procedure well and had no complications. DANISHA MASON MD Mar 20, 2021 09:42
--- NOTE | 2021-03-20 09:42 | PDOC4 ---
Procedure Note: ICD 10 Code: ICD 10 Code: M54.16 M51.36 7.816 Procedure Note: Patient was consented for lumbar epidural steroid action with fluoroscopic guidance. Risks were discussed including but not limited to: Bleeding, infection, possibility of epidural hematoma and subsequent neurological compromise, dural puncture, headaches, spinal cord and/or nerve damage, side effects of steroid medication, and poor results regarding pain control. Patient understands and wished to proceed. Procedure is lumbar epidural steroid injection under local anesthetic using sterile prep and drape at the L4-5 level using C-arm fluoroscopic guidance in both AP and lateral views medications injected is 120 mg Depo-Medrol +10mL preservative-free normal saline and 2 mL contrast- condition at discharge is stable patient tolerated procedure well had no complications. DANISHA MASON MD Mar 20, 2021 09:42
== END | disposition home or self-care (01) ==
LOC: PNCL 09:02
PROVIDERS: ATTEND Anesthesiology
DX: M51.16 Intervertebral disc disorders with radiculopathy, lumbar region (principal); M47.26 Other spondylosis with radiculopathy, lumbar region; Z79.899 Other long term (current) drug therapy; Z88.8 Allergy status to other drugs, medicaments and biological substances
CPT/HCPCS: 62323; J1040; Q9965

== ENCOUNTER → 2021-05-01 | Outpatient (CLI) | payer OTHER ==
[~2021-05-01] MED LIST changes: +HYDR-2761 PO; -IOHEXOL 180 MG/ML 10 ML VIAL. ONE; +TADA5TAB PO; +TEST5GEL TP; -methylPREDNISolone ACETATE 80 MG/ML VIAL. ONE
--- NOTE | 2021-05-01 14:20 | PDOC ---
Progress Note - Pain Clinic Date of Service: DOS: DATE: 05/01/21 TIME: 14:14 Diagnosis: Dx: Lumbar radiculopathy with lumbar degenerative disease and lumbar and lumbosacral spondylosis History or Present Illness: HPI: 55-year-old male returns for follow-up status post number epidural steroid injection x2. Patient reports he does very well about 90% improvement for about 3 weeks then the pain returns fairly quickly in the low back and into the left lower extremity greater than the right. Patient reports is still have sig nificant decrease in pain during that time. But pain returns fairly significantly patient reports aching sharp stabbing in the low back into the lower extremities again worse on the left than the right posterior gluteus posterior lateral thigh lateral anterior thigh anteromedial thigh and medial lower leg patient reports a 9 on scale 10 is worse over the past week 6 on average 3 distillation is a 6 today patient reports is worse with walking standing changing positions better with sitting or laying down generally does not awaken her from sleep at night. Patient reports when he is standing or walking and trying to walk more than about quarter mile to half a mile becomes a significant ache low back orients to stop and rest. Patient reports no bowel or bladder incontinence. Physical Exam: VS: Blood pressure is 146/86 pulse 85 respirations 18 temperature 98.9 F weight is 248 pounds PE: PHYSICAL EXAMINATION: GENERAL: The patient is awake, alert, oriented, appropriate, very pleasant in demeanor HEENT: Shows normocephalic, atraumatic. Extraocular movements are intact and symmetrical. Oral cavity: Mucous membranes moist and pink. Dentition is intact. NECK: Shows anterior throat supple without palpable lymphadenopathy noted. Swallow reflex symmetrical. CHEST: Shows normal on inspection. Breath sounds are clear bilaterally, no ral es rhonchi or wheezes auscultated bilaterally. HEART: Shows S1, S2 clear. No murmurs auscultated. ABDOMEN: Soft, nontender, nondistended, obese. No palpable organomegaly is noted. BACK: Shows spine grossly in the midline. Normal-appearing cervical lordotic curvature. There is slightly increased thoracic kyphosis, some flattening of the lumbar lordotic curvature. Lumbar paraspinous muscles show symmetrical on inspection, on palpation shows some moderate tenderness diffusely throughout the upper, middle and lower distribution of the paraspinous muscles, but without specific trigger points, without radiation of pain. The patient has good rotational motion of the lumbar spine, both laterally as well as extension and flexion without significant difficulty. No tenderness over the spinous processes, sacrum or sacroiliac regions. EXTREMITIES: Lower extremities show deep tendon reflexes 2+ in the patellar and tendo calcaneus tendons. Motor exam is 5 on a scale of 5 with right dorsiflexion, extension, quadriceps and hamstring flexion and 5/5 on the left. Peripheral pulses are 1+ posterior tibial. No peripheral edema is noted bilaterally. Lower extremities are warm and dry to touch, equal in color and appearance. SKIN: Shows warm and dry, good turgor. No edema. No sores, rashes or bruising throughout. Procedure: Procedure: Options were discussed with patient. Patient chart was reviewed his current medication regimen updated current review of systems updated today as well. We will hold any further injections at this time as well they have been helpful been fairly temporary and patient would like to revisit his neurosurgeon as he does have an L45 synovial cysts pressing into the left side of the nerve root at that level as well as some stenosis at L3-4. We will make these arrangements to follow-up with his neurosurgeon. Patient also will be electronically prescribed hydrocodone 5 mg with instructions side effects aware of discussed with medication Medication Injected: Med Injected: None Condition at Discharge: Condition at Discharge: Condition at discharge is stable. DAINSHA MASON MD May 01, 2021 14:20
== END | disposition home or self-care (01) ==
LOC: PNCL 13:31
PROVIDERS: ATTEND Anesthesiology
DX: M51.16 Intervertebral disc disorders with radiculopathy, lumbar region (principal); M47.27 Other spondylosis with radiculopathy, lumbosacral region; Z79.899 Other long term (current) drug therapy
CPT/HCPCS: 99212; G0463

== ENCOUNTER → 2021-05-19 | Outpatient (CLI) | payer OTHER ==
--- NOTE | 2021-05-19 16:44 | PDOC ---
Progress Note - Pain Clinic Date of Service: DOS: DATE: 05/19/21 TIME: 16:42 Diagnosis: Dx: Lumbar radiculopathy with lumbar degenerative disease and lumbar and lumbosacral spondylosis History or Present Illness: HPI: Telemedicine visit today via telephone with patient's identity verified with date of as well as full name, total time spent 14 minutes 55-year-old male with request for refill hydrocodone 5 mg patient distant very well with this taking less than 2 a day on most days but still significant pain in the low back and into the lower extremities. Patient reports no side effects with medication is doing fairly well his upcoming surgery with his neurosurgeon in approximate 3weeks. Patient did well after epidural steroid injection but the pain returned fairly significantly and fairly quickly after the last injection we had him follow-up with a neurosurgeon and surgery is now scheduled for lumbar decompression. Patient reports no new motor or sensory deficits no new side effects as well and as stated we will renew his medication with instructions side effects aware discussed. Patient will follow up at this point after surgery and or as a as needed basis. Physical Exam: PE: DANISHA MASON MD May 19, 2021 16:44
== END | disposition home or self-care (01) ==
LOC: PNCL 15:08
PROVIDERS: ATTEND Anesthesiology
DX: M51.16 Intervertebral disc disorders with radiculopathy, lumbar region (principal); M47.27 Other spondylosis with radiculopathy, lumbosacral region; Z79.899 Other long term (current) drug therapy
CPT/HCPCS: 99212; G0463

== ENCOUNTER → 2021-06-02 | Outpatient (CLI) | payer OTHER ==
[~2021-06-02] MED LIST changes: +ALPR0.5T PO; +DOCU-109 PO; +METH-562 PO; +OXYC1TAB15 PO
[2021-06-02 16:11] LABS: BASO % 0 % (0-3); EOS # 0.1 x10^3/uL (0.0-0.7); EOS % 1 % (0-3); HEMATOCRIT 42.6 % (39.0-53.0); HEMOGLOBIN 14.5 g/dL (13.0-17.5); LYMPH # 0.5 x10^3/uL (1.0-4.8); LYMPH % 10 % (24-48); MEAN CORPUSCULAR HEMOGLOBIN 34 pg (25-35); MEAN CORPUSCULAR HGB CONC 34 g/dL (31-37); MEAN CORPUSCULAR VOLUME 100 fL (79-100); MONO # 0.7 x10^3/uL (0.0-1.1); MONO % 16 % (0-9); NEUT # 3.4 x10^3/uL (1.8-7.7); NEUT % 73 % (31-73); PLATELET COUNT 141 x10^3/uL (140-400); RED BLOOD COUNT 4.26 x10^6/uL (4.30-5.70); RED CELL DISTRIBUTION WIDTH 12.1 % (11.5-14.5); WHITE BLOOD COUNT 4.6 x10^3/uL (4.0-11.0)
[2021-06-02 16:26] LABS: ALBUMIN 3.9 g/dL (3.4-5.0); ALBUMIN/GLOBULIN RATIO 0.9 (1.0-1.7); CREATININE 0.6 mg/dL (0.7-1.3); GFR 139.4; POTASSIUM 4.2 mmol/L (3.5-5.1); TOTAL BILIRUBIN 0.9 mg/dL (0.2-1.0); TOTAL PROTEIN 8.2 g/dL (6.4-8.2)
== END ==
LOC: SURGPAT 13:46
PROVIDERS: ATTEND Neurological Surgery
DX: Z01.812 Encounter for preprocedural laboratory examination (principal); M48.062 Spinal stenosis, lumbar region with neurogenic claudication; M71.30 Other bursal cyst, unspecified site; D17.79 Benign lipomatous neoplasm of other sites
CPT/HCPCS: 36415; 80053; 85025; 87641

== ENCOUNTER → 2021-06-05 | Outpatient (CLI) | payer OTHER ==
[~2021-06-05] MED LIST changes: -DOCU-109 PO; -METH-562 PO; -OXYC1TAB15 PO
--- NOTE | 2021-06-05 15:24 | PDOC ---
Progress Note - Pain Clinic Date of Service: DOS: DATE: 06/05/21 TIME: 15:22 Diagnosis: Dx: Lumbar radiculopathy with lumbar degenerative disc disease and lumbar and lumbosacral spondylosis History or Present Illness: HPI: Telemedicine visit today with patient with identity verified with full name as well as full date of , total time spent 12 minutes 55-year-old male via telemedicine visit today regarding upcoming surgery for lumbar laminectomy patient been taking hydrocodone 5 mg is requesting refill prior to the surgery which is in approximately 4 days. Patient has been doing well with hydrocodone which we prescribed for him the beginning of the month and reports no significant side effects except for some insomnia. Patient reports no constipation no dysphoria no memory difficulties itching or other nausea or vomiting. Patient reports still significant pain in the low back as was previously without specific deficits. Patient has had appropriate K tracks reporting to date as well. We will prescribe electronically hydrocodone 5 mg with instructions and side effects aware of discussed with patient and. Patient will follow up after surgery next week. DANISHA MASON MD Jun 05, 2021 15:24
== END | disposition home or self-care (01) ==
LOC: PNCL 11:27
PROVIDERS: ATTEND Anesthesiology
DX: M51.16 Intervertebral disc disorders with radiculopathy, lumbar region (principal); M47.26 Other spondylosis with radiculopathy, lumbar region; Z79.899 Other long term (current) drug therapy; Z72.89 Other problems related to lifestyle; Z88.8 Allergy status to other drugs, medicaments and biological substances
CPT/HCPCS: 99212; G0463

== ENCOUNTER 2021-06-09 07:17 | Observation (INO) | payer OTHER ==
[2021-06-04 09:17] VITALS: BP 144/82
--- NOTE | 2021-06-08 21:26 | PREOP HP ---
DATE OF SERVICE: 06/09/2021 HISTORY OF PRESENT ILLNESS: The patient is a pleasant 55-year-old who is having difficulty with back pain. The back pain occurs primarily with activities, although at night when he lies down to go to bed, his back is also very painful. He says his pain is a constant 3-6/10. When he becomes active with standing or walking, his pain has markedly increased. He was taking Tylenol No. 3, but that was becoming less effective and now he is taking hydrocodone. He has had 2 epidural steroid injections, each helped him for about a month. There is no significant pain in his lower extremities. CURRENT MEDICATIONS: Hydrocodone, prostate medication, multivitamin. PAST MEDICAL HISTORY: Gout. PAST SURGICAL HISTORY: No surgery documented. FAMILY HISTORY: Alzheimer's disease. SOCIAL HISTORY: Works in the home. . Denies tobacco use. Drinks 2 alcoholic beverages per day. ALLERGIES: TRAMADOL. REVIEW OF SYSTEMS: A 12-point review of systems was performed and is noncontributory except that mentioned above. PHYSICAL EXAMINATION: GENERAL: Alert, pleasant, in no acute distress. HEENT: Head is normocephalic, atraumatic. SKIN: Warm and dry. MUSCULOSKELETAL: Lumbar paraspinal muscle bulk is normal, restricted range of motion of the lumbar spine, [id number] tenderness of the lower lumbar spine with palpation, normal range of motion of the lower extremities bilaterally. EXTREMITIES: No clubbing, cyanosis or edema. NEUROLOGIC: Alert and oriented x 3. Normal recent and remote memory, strength is 5/5 in the lower extremities bilaterally, sensory is intact to light touch in lower extremities bilaterally. Reflexes were present and symmetric in the lower extremities bilaterally. Negative straight leg raising bilaterally. Normal gait. IMAGING: I reviewed a lumbar MRI scan from 12/03/2020. On that study, there is lumbar spinal stenosis and epidural lipomatosis at L3-4 and L4-5. Additionally, at L4-5 on the left, there is a large synovial cyst, which contributes to the lateral stenosis. ASSESSMENT AND PLAN: I am concerned that the epidural lipomatosis and lumbar stenosis at L3-4 and L4-5 is responsible for his pain. I recommended a laminectomy at L3-4 and L4-5 along with removal of synovial cyst at L4-5 to decompress the entire region and see if he can gain some relief. I did discuss this with him in detail. I spoke with him about the surgery and the risks. I explained the expected postoperative course. He understands and would like to go ahead. JUAN DR: Ct TID: [id number]
[2021-06-09] VITALS (11 sets, daily range): BP systolic 147–168; BP diastolic 78–90
[~2021-06-09] VITALS: Ht 180.3 cm; Wt 112.4 kg
[~2021-06-09 07:17] MED LIST changes: +BUPIVACAINE-EPI 0.5% 30 ML VIAL KIT. ONE; +DEXAMETHASONE SOD PHOS 4 MG/ML VIAL ONE; +GELATIN SPONGE SIZE 100. ONE; +GLYCOPYRROLATE 1 MG/5 ML VIAL. ONE; +HYDROmorphone 2 MG/ML VIAL IVP PRN; +IV RINGERS,LACTATED 1000ML 1,000 ML IV SCH; +KETAMINE HCL IN NACL, ISO-OSM 50 MG/5 ML SYRINGE ONE; +KETOROLAC 60 MG/2 ML VIAL. ONE; +LIDOCAINE 2% PF 5 ML VIAL. ONE; +MIDAZOLAM HCL/PF 2 MG/2 ML VIAL. ONE; +MORPHINE SULFATE 2 MG/ML INJ. IVP PRN; +NEOSTIGMINE 10 MG/10 ML VIAL. ONE; +ONDANSETRON PF 4 MG/2 ML VIAL. ONE; +PHENYLEPHRINE 10 MG/ML VIAL. ONE; +PROCHLORPERAZINE 10 MG/2 ML VIAL. IVP PRN; +PROPOFOL 10 MG/ML (20ML) VIAL. IV ONE; +PROPOFOL 50 ML IV ONE; +REMIFENTANIL 1 MG VIAL. IV ONE; +ROCURONIUM 50 MG/5 ML VIAL. ONE; +SEVOFLURANE > 120 MINUTES. IH ONE; +SUCCINYLCHOLINE 200 MG/10 ML VIAL. ONE; +THROMBIN TOPICAL 20,000 UNIT SPRAY.SYRN KIT TP ONE; +ceFAZolin SODIUM 1 GM in IV NORMAL SALINE 1000ML BAG 1,000 ML IRR ONE; +fentaNYL PF VIAL 100 MCG/2 ML VIAL IVP PRN; +fentaNYL PF VIAL 100 MCG/2 ML VIAL ONE
[2021-06-09] MEDS ORDERED: PROPOFOL 50 ML IV ONE ×2 (07:58→09:44)
[2021-06-09] MEDS ORDERED: HYDROmorphone 2 MG/ML VIAL ONE (10:34)
[2021-06-09] MEDS ORDERED: GELATIN SPONGE SIZE 100. ONE (12:37)
[2021-06-09] MEDS ORDERED: THROMBIN TOPICAL 20,000 UNIT SPRAY.SYRN KIT TP ONE ×2 (12:37→12:42)
[2021-06-09] MEDS ORDERED: MAGNESIUM HYDROXIDE 2,400 MG/30 ML ORAL.SUSP. PO PRN (13:15)
[2021-06-09] MEDS ORDERED: ALPRAZolam 0.5 MG TABLET PO PRN (13:15)
[2021-06-09] MEDS ORDERED: 0.9 % SODIUM CHLORIDE 10 ML DISP.SYRIN. IV PRN (13:15)
[2021-06-09] MEDS ORDERED: oxyCODONE/APAP 5/325 1 TAB TABLET PO PRN (13:15)
[2021-06-09] MEDS ORDERED: CALCIUM CARBONATE 500 MG TAB.CHEW PO PRN (13:15)
[2021-06-09] MEDS ORDERED: fentaNYL PF VIAL 100 MCG/2 ML VIAL IVP PRN (13:15)
[2021-06-09] MEDS: POTASSIUM CL 20MEQ D5-0.45NACL 1,000 ML IV SCH ×2 (13:15→19:31)
[2021-06-09] MEDS ORDERED: NALOXONE 0.4 MG/ML VIAL. IV PRN (13:15)
[2021-06-09] MEDS ORDERED: ACETAMINOPHEN 325 MG TABLET. PO PRN (13:15)
[2021-06-09] MEDS ORDERED: METHOCARBAMOL 750 MG TABLET PO PRN (13:15)
[2021-06-09] MEDS ORDERED: diphenhydrAMINE HCL 25 MG CAPSULE PO PRN (13:15)
[2021-06-09] MEDS ORDERED: ONDANSETRON PF 4 MG/2 ML VIAL. IVP PRN (13:15)
[2021-06-09] MEDS ORDERED: MAG HYDROX/ALUMINUM HYD/SIMETH 30 ML ORAL.SUSP PO PRN (13:15)
[2021-06-09] MEDS ORDERED: fentaNYL PF VIAL 100 MCG/2 ML VIAL ONE (15:38)
--- NOTE | 2021-06-09 15:58 | OP ---
DATE OF SURGERY: 06/09/2021 PREOPERATIVE DIAGNOSIS: Lumbar spinal stenosis/epidural lipomatosis L3 through L5 with synovial cyst, L4-L5, left. POSTOPERATIVE DIAGNOSIS: Lumbar spinal stenosis/epidural lipomatosis L3 through L5 with synovial cyst, L4-L5, left. OPERATIONS PERFORMED: Lumbar laminectomy, L3, L4, L5, with removal of epidural lipomatosis and decompression of dura and nerve roots with transforaminal exposure, left L4-L5 with decompression of the left L4 root and removal of synovial cyst. SURGEON: Cuong David M.D. MASTER SONAR TECHNICIAN: RAN Snow, assisted with the surgery, the exposure, the decompression as well as the closure. He also has EMG monitoring, SSEP monitoring, fluoroscopy, microscopic dissection. OPERATIVE INDICATIONS: The patient is a pleasant 55-year-old man who developed intractable back pain was found to have the above-mentioned findings and I recommended a lumbar laminectomy, the decompression of the dura and nerve roots for a transforaminal decompression of the left L4-L5. I spoke with him about the surgery and the risks, he wished to go ahead. DESCRIPTION OF PROCEDURE: Following general endotracheal anesthesia, the patient was positioned on the operating room table. We were careful to avoid any pressure points. His lumbar region was prepped and draped in the standard fashion. JCARLOS hose and AV impulse boots were applied for DVT prophylaxis. The microscope was draped, fluoroscopy was draped and brought into the field. Monitoring was established. Ancef 2 grams given less than 1 hour prior to initiation of surgery. Using fluoroscopic guidance, a midline incision was made extending from the L3 to L5. I dissected the skin, subcutaneous tissue, reflected the paraspinal muscles and placed Magana retractors. I brought in the microscope. The remainder of surgery was done with microscope using microscopic technique. I used the conical bur. I burred away the spinous processes behind the vertebral bodies of L3, L4 and L5. I then used the matchstick bur and thinned the overlying laminar bone. I then brought in Kerrisons, both the 2.5 and 4, and thinned the bone working from inferior to superiorly and fully decompressed the entire region bilaterally. There was significant epidural lipomatosis removed. I then went over to the left at L4-L5, confirming my location fluoroscopically. Using the high-speed air drill, I burred down the bone through this. I then visualized the L4 root and then it was removed. I removed cyst material, which was a degenerated ligament/scar or cyst. Following this, then the region was very well decompressed. I irrigated copiously and explored carefully. I was very pleased. I obtained excellent hemostasis and then closed the wound in layers with absorbable suture. The skin was closed with 4-0 subcuticular stitch. The surgery went well. There were no untoward events with the monitoring. I was quite pleased with the surgery. KODI/ARNOLDO DR: Barby TID: [id number] ASHOK
[2021-06-09] MEDS: DOCUSATE SODIUM 100 MG CAPSULE. PO SCH (19:21)
[2021-06-09] MEDS: oxyCODONE/APAP 5/325 1 TAB TABLET PO PRN (21:27)
[2021-06-09] MEDS ORDERED: ZOLPIDEM 5 MG TABLET. PO PRN ×2 (22:15)
[2021-06-09] MEDS ORDERED: cloNIDine HCL 0.1 MG TABLET PO PRN (22:30)
[2021-06-09] MEDS: FOLIC ACID 1 MG TABLET. PO SCH (22:46)
[2021-06-09] MEDS: THIAMINE 100 MG TABLET. PO SCH (22:47)
[2021-06-09] MEDS: MULTIVITAMIN with MINERAL TABLET. PO SCH (22:48)
--- NOTE | 2021-06-09 23:12 | PDOC2 ---
CONSULT Date of Consult Date of Consult DATE: 06/09/21 TIME: 23:09 Reason for Consult Reason for Consult: Medical management Referring Physician Referring Physician: Dr. Cuong David Identification/Chief Complaint Chief Complaint Lower back pain Source Source: Chart review, Patient History of Present Illness Reason for Visit: Mr Torres is a 55-year-old male with PMHx BPH, gout, and hypothyroidism admitted for worsening back pain worse upon standing, has failed outpatient conservative measures with LESI x2 and was admitted for progression of the pain requiring increasing outpatient doses of opioids increased from tylenol #3 to hydrocodone 5mg and is now status post L3-4-5 lumbar laminectomy. Seen postoperatively in consultation for worsening tremors and anxiety. He notes he was not 100% clear about his alcohol intake drinks more than 8 beers per day and usually upwards of 12. He is never experienced alcohol withdrawal but he does notice if he goes more than 4 hours without a drink for the morning he has tremors that affect his writing. No immediate postoperative complications noted patient feels his pain is actually better controlled now His tremors and anxiety are the worst of his symptoms. He feels a little short of breath as well. Not hypoxic Past Medical History Renal/: Benign prostatic enlarg. Endocrine: Hypothyroidism Past Surgical History Past Surgical History 06/09/2021 - S/p lumbar laminectomy, L3, L4, L5, with removal of epidural lipomatosis and decompression of dura and nerve roots with transforaminal exposure, left L4-L5 with decompression of the left L4 root and removal of synovial cyst. 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 mostly works from home now No ALCOHOL: heavy Drugs: None Lives: with Family () Domestic Violence: Neg Current Medications Current Medications Current Medications Fentanyl Citrate (Fentanyl 2ml Vial) 25 mcg PRN Q5MIN PRN IVP MILD PAIN 1-3; Start 06/09/21 at 06:00; Stop 06/10/21 at 05:59 Fentanyl Citrate (Fentanyl 2ml Vial) 50 mcg PRN Q5MIN PRN IVP MODERATE PAIN 4-6 Last administered on 06/09/21at 15:43; Start 06/09/21 at 06:00; Stop 06/10/21 at 05:59 Morphine Sulfate (Morphine Sulfate) 1 mg PRN Q10MIN PRN IVP SEVERE PAIN 7-10; Start 06/09/21 at 06:00; Stop 06/10/21 at 05:59 Ringer's Solution 1,000 ml @ 30 mls/hr Q24H IV Last administered on 06/09/21at 07:59; Start 06/09/21 at 06:00; Stop 06/09/21 at 17:59; Status DC Hydromorphone HCl (Dilaudid) 0.5 mg PRN Q10MIN PRN IVP SEVERE PAIN 7-10, 2nd CHOICE; Start 06/09/21 at 06:00; Stop 06/10/21 at 05:59 Prochlorperazine Edisylate (Compazine) 5 mg PACU PRN PRN IVP NAUSEA, MRX1; Start 06/09/21 at 06:00; Stop 06/10/21 at 05:59 Cefazolin Sodium/ Dextrose 50 ml @ 100 mls/hr 1X PREOP PRN IV PRIOR TO PROCEDURE Last administered on 06/09/21at 09:15; Start 06/09/21 at 06:00; Stop 06/09/21 at 18:00; Status DC Cefazolin Sodium 1 gm/Sodium Chloride 1,000 ml @ 1,000 mls/hr 1X ONCE IRR Last administered on 06/09/21at 09:39; Start 06/09/21 at 06:00; Stop 06/09/21 at 06:59; Status DC Gelatin (Gelfoam Size 100) 1 each STK-MED ONCE .ROUTE Last administered on 06/09/21at 09:39; Start 06/09/21 at 06:32; Stop 06/09/21 at 06:32; Status DC Bupivacaine HCl/ Epinephrine Bitart (Sensorcain-Epi 0.5% Kit) 30 ml STK-MED ONCE .ROUTE Last administered on 06/09/21at 09:39; Start 06/09/21 at 06:32; Stop 06/09/21 at 06:32; Status DC Ketorolac Tromethamine (Toradol Im) 60 mg STK-MED ONCE .ROUTE Last administered on 06/09/21at 09:39; Start 06/09/21 at 06:32; Stop 06/09/21 at 06:33; Status DC Thrombin 20,000 unit STK-MED ONCE TP Last administered on 06/09/21at 09:39; Start 06/09/21 at 06:32; Stop 06/09/21 at 06:33; Status DC Propofol (Diprivan) 200 mg STK-MED ONCE IV ; Start 06/09/21 at 05:43; Stop 06/09/21 at 07:44; Status DC Lidocaine HCl (Lidocaine Pf 2% Vial) 5 ml STK-MED ONCE .ROUTE ; Start 06/09/21 at 05:43; Stop 06/09/21 at 07:44; Status DC Ondansetron HCl (Zofran) 4 mg STK-MED ONCE .ROUTE ; Start 06/09/21 at 05:43; Stop 06/09/21 at 07:44; Status DC Phenylephrine HCl (Parish-Synephrine Inj) 10 mg STK-MED ONCE .ROUTE ; Start at 05:43; Stop 06/09/21 at 07:44; Status DC Propofol 50 ml @ As Directed STK-MED ONCE IV ; Start 06/09/21 at 05:43; Stop 06/09/21 at 07:44; Status DC Dexamethasone Sodium Phosphate (Decadron) 4 mg STK-MED ONCE .ROUTE ; Start 06/09/21 at 05:43; Stop 06/09/21 at 07:44; Status DC Sevoflurane (Ultane) 90 ml STK-MED ONCE IH ; Start 06/09/21 at 05:43; Stop 06/09/21 at 07:44; Status DC Fentanyl Citrate (Fentanyl 2ml Vial) 100 mcg STK-MED ONCE .ROUTE ; Start 06/09/21 at 05:44; Stop 06/09/21 at 07:44; Status DC Rocuronium [place] (Zemuron) 50 mg STK-MED ONCE .ROUTE ; Start 06/09/21 at 05:44; Stop 06/09/21 at 07:44; Status DC Midazolam HCl (Versed) 2 mg STK-MED ONCE .ROUTE ; Start 06/09/21 at 05:44; Stop 06/09/21 at 07:44; Status DC Remifentanil HCl (Ultiva) 1 mg STK-MED ONCE IV ; Start 06/09/21 at 05:44; Stop 06/09/21 at 07:44; Status DC Glycopyrrolate (Robinul) 1 mg STK-MED ONCE .ROUTE ; Start 06/09/21 at 05:44; Stop 06/09/21 at 07:45; Status DC Succinylcholine Chloride (Anectine) 200 mg STK-MED ONCE .ROUTE ; Start 06/09/21 at 05:45; Stop 06/09/21 at 07:45; Status DC Ketamine HCl (Ketamine) 50 mg STK-MED ONCE .ROUTE ; Start 06/09/21 at 05:51; Stop 06/09/21 at 07:52; Status DC Neostigmine Methylsulfate (Bloxiverz) 10 mg STK-MED ONCE .ROUTE ; Start 06/09/21 at 06:06; Stop 06/09/21 at 08:06; Status DC Propofol 50 ml @ As Directed STK-MED ONCE IV ; Start 06/09/21 at 07:58; Stop 06/09/21 at 09:58; Status DC Propofol 50 ml @ As Directed STK-MED ONCE IV ; Start 06/09/21 at 09:44; Stop 06/09/21 at 11:44; Status DC Hydromorphone HCl (Dilaudid) 2 mg STK-MED ONCE .ROUTE ; Start 06/09/21 at 10:34; Stop 06/09/21 at 12:34; Status DC Gelatin (Gelfoam Size 100) 1 each STK-MED ONCE .ROUTE Last administered on 06/09/21at 12:39; Start 06/09/21 at 12:37; Stop 06/09/21 at 12:37; Status DC Thrombin 20,000 unit STK-MED ONCE TP Last administered on 06/09/21at 12:39; Start 06/09/21 at 12:37; Stop 06/09/21 at 12:37; Status DC Thrombin 20,000 unit STK-MED ONCE TP Last administered on 06/09/21at 12:45; Start 06/09/21 at 12:42; Stop 06/09/21 at 12:42; Status DC Alprazolam (Xanax) 0.5 mg PRN Q6HRS PRN PO ANXIETY / AGITATION Last administered on 06/09/21at 19:22; Start 06/09/21 at 13:15; Stop 06/09/21 at 22:32; Status DC Levothyroxine Sodium (Synthroid) 150 mcg DAILY06 PO ; Start 06/10/21 at 06:00 Multivitamins (Thera M Plus) 1 tab DAILY PO ; Start 06/10/21 at 09:00; Status Cancel Fentanyl Citrate (Fentanyl 2ml Vial) 50 mcg PRN Q2HR PRN IVP PAIN; Start 06/09/21 at 13:15 Acetaminophen (Tylenol) 650 mg PRN Q6HRS PRN PO MILD PAIN / TEMP > 100.3'F; Start 06/09/21 at 13:15 Al Hydroxide/Mg Hydroxide (Mylanta Plus Xs) 30 ml PRN Q3HRS PRN PO HEARTBURN / GAS; Start 06/09/21 at 13:15 Calcium Carbonate/ Glycine (Tums) 500 mg PRN Q3HRS PRN PO INDIGESTION; Start 06/09/21 at 13:15 Diphenhydramine HCl (Benadryl) 25 mg PRN Q6HRS PRN PO ITCHING; Start 06/09/21 at 13:15 Naloxone HCl (Narcan) 0.1 mg PRN Q2MIN PRN IV SEE COMMENTS; Start 06/09/21 at 13:15 Sodium Chloride (Normal Saline Flush) 3 ml QSHIFT PRN IV AFTER MEDS AND BLOOD DRAWS; Start 06/09/21 at 13:15 Potassium Chloride/Dextrose/ Sod Cl 1,000 ml @ 75 mls/hr [id number] IV Last administered on 06/09/21at 19:31; Start 06/09/21 at 13:15 Oxycodone/ Acetaminophen (Percocet 5/325) 1 tab PRN Q4HRS PRN PO MILD PAIN, 1ST CHOICE Last administered on 06/09/21at 19:22; Start 06/09/21 at 13:15 Oxycodone/ Acetaminophen (Percocet 5/325) 2 tab PRN Q4HRS PRN PO MODERATE PAIN, SEVERE PAIN Last administered on 06/09/21at 21:27; Start 06/09/21 at 13:15 Methocarbamol (Robaxin) 750 mg PRN TID PRN PO MUSCLE SPASMS Last administered on 06/09/21at 19:20; Start 06/09/21 at 13:15 Docusate Sodium (Colace) 100 mg BID PO Last administered on 06/09/21at 19:21; Start 06/09/21 at 21:00 Magnesium Hydroxide (Milk Of Magnesia) 2,400 mg PRN Q12HR PRN PO CONSTIPATION; Start 06/09/21 at 13:15 Ondansetron HCl (Zofran) 4 mg PRN Q6HRS PRN IVP NAUESA, 1ST CHOICE; Start 06/09/21 at 13:15 Fentanyl Citrate (Fentanyl 2ml Vial) 100 mcg STK-MED ONCE .ROUTE ; Start 06/09/21 at 15:38; Stop 06/09/21 at 15:39; Status DC Zolpidem Tartrate (Ambien) 5 mg 1X PRN PRN PO INSOMNIA, MAY REPEAT X1; Start 06/09/21 at 22:15 Zolpidem Tartrate (Ambien) 5 mg 1X PRN PRN PO INSOMNIA IF REPEAT NEEDED; Start 06/09/21 at 22:15; Stop 06/10/21 at 22:14 Multivitamins (Thera M Plus) 1 tab DAILY PO Last administered on 06/09/21at 22:48; Start 06/09/21 at 23:00 Folic Acid (Folic Acid) 1 mg DAILY PO Last administered on 06/09/21at 22:46; Start 06/09/21 at 23:00 Thiamine Mononitrate (Vitamin B-1) 100 mg DAILY PO Last administered on 06/09/21at 22:47; Start 06/09/21 at 23:00 Lorazepam (Ativan) 2 mg PRN Q1HR PRN PO For CIWA 8-14 Last administered on 06/09/21at 22:44; Start 06/09/21 at 22:30 Lorazepam (Ativan) 4 mg PRN Q1HR PRN PO For CIWA 15 or greater; Start 06/09/21 at 22:30 Lorazepam (Ativan Inj) 2 mg PRN Q1HR PRN IV For CIWA 8-14; Start 06/09/21 at 22:30 Lorazepam (Ativan Inj) 4 mg PRN Q1HR PRN IV For CIWA 15 or greater; Start 06/09/21 at 22:30 Clonidine HCl (Catapres) 0.1 mg PRN Q1HR PRN PO SBP > 180 or DBP > 100, MRX3; Start 06/09/21 at 22:30 Active Scripts Active Hydrocodone-Apap 5-325 (Hydrocodone Bit/Acetaminophen) 1 Tab Tablet 1 Tab PO PRN Q6HRS PRN 30 Days Reported Xanax (Alprazolam) 0.5 Mg Tablet 0.5 Mg PO PRN Q6HRS PRN Cialis (Tadalafil) 5 Mg Tablet 1 Tab PO DAILY Levothyroxine Sodium 25 Mcg Tablet 150 Mcg PO DAILY Multivitamins (Multivitamin) 1 Each Capsule 1 Cap PO DAILY 30 Days Allergies Allergies: Coded Allergies: tramadol (Verified Allergy, Mild, Nausea, 06/09/21) "made me feel weird" ROS General: No: Chills, Night Sweats, Fatigue, Malaise, Appetite, Other PSYCHOLOGICAL ROS: YES: Anxiety, Concentration difficultie, Disorientation, Memory difficulties, Mood Swings, Obsessive thoughts; No: Behavioral Disorder, Decreased libido, Depression, Hallucinations, Hostility, Irritablity, Physical abuse, Sexual abuse, Sleep disturbances, Suicidal ideation, Other Eyes: No Blurry vision, No Decreased vision, No Double vision, No Dry eyes, No Excessive tearing, No Eye Pain, No Itchy Eyes, No Loss of vision, No Photophobia, No Scotomata, No Uses contacts, No Uses glasses, No Other HEENT: No: Heacaches, Visual Changes, Hearing change, Nasal congestion, Nasal discharge, Oral lesions, Sinus pain, Sore Throat, Epistaxis, Sneezing, Snoring, Tinnitus, Vertigo, Vocal changes, Other ALLERGY AND IMMUNOLOGY: No: Hives, Insect Bite Sensitivity, Itchy/Watery Eyes, Nasal Congestion, Post Nasal Drip, Seasonal Allergies, Other Hematological and Lymphatic: No: Bleeding Problems, Blood Clots, Blood Transfusions, Brusing, Night Sweats, Pallor, Swollen Lymph Nodes, Other ENDOCRINE: No: Breast Changes, Galactorrhea, Hair Pattern Changes, Hot Flashes, Malaise/lethargy, Mood Swings, Palpitations, Polydipsia/polyuria, Skin Changes, Temperature Intolerance, Unexpected Weight Changes, Other Breast: No New/Changing Breast Lumps, No Nipple changes, No Nipple discharge, No Other Respiratory: No: Cough, Hemoptysis, Orthopnea, Pleuritic Pain, Shortness of breath, SOB with excertion, Sputum Changes, Stridor, Tachypnea, Wheezing, Other Cardiovascular: No Chest Pain, No Palpitations, No Orthopnea, No Paroxysmal Noc. Dyspnea, No Edema, No Lt Headedness, No Other Gastrointestinal: No Nausea, No Vomiting, No Abdominal Pain, No Diarrhea, No Constipation, No Melena, No Hematochezia, No Other Genitourinary: No Dysuria, No Frequency, No Incontinence, No Hematuria, No Retention, No Discharge, No Urgency, No Pain, No Flank Pain, No Other, No , No , No , No , No , No , No Musculoskeletal: Yes Joint Pain, Yes Joint Stiffness; No Gait Disturbance, No Joint Swelling, No Muscle Pain, No Muscular Weakness, No Pain In:, No Swelling In:, No Other Neurological: No Behavorial Changes, No Bowel/Bladder ControlChng, No Confusion, No Dizziness, No Gait Disturbance, No Headaches, No Impaired Coord/balance, No Memory Loss, No Numbness/Tingling, No Seizures, No Speech Problems, No Tremors, No Visual Changes, No Weakness, No Other Skin: No Dry Skin, No Eczema, No Hair Changes, No Lumps, No Mole Changes, No Mottling, No Nail Changes, No Pruritus, No Rash, No Skin Lesion Changes, No Other, No Acne Physical Exam General: Alert, Oriented X3, Cooperative, moderate distress HEENT: Atraumatic, PERRLA, EOMI, Mucous membr. moist/pink Lungs: Clear to auscultation, Normal air movement Heart: Regular rate, Normal S1, Normal S2, No murmurs Abdomen: Normal bowel sounds, Soft, No tenderness, No hepatosplenomegaly, No masses Extremities: No clubbing, No cyanosis, No edema, Normal pulses, No tenderness/swelling Skin: No rashes, No breakdown Neuro: Normal gait, Normal speech, Normal tone, Sensation intact, Reflexes 2+ Psych/Mental Status: Mental status NL, Mood NL MUSCULOSKELETAL: Abnormal active ROM of (Low back) Vitals VITALS Vital Signs Date Time Temp Pulse Resp B/P (MAP) Pulse Ox O2 Delivery O2 Flow Rate FiO2 06/09/21 23:00 97.4 72 20 168/80 (109) 95 Room Air 97.4 06/09/21 14:35 10 Assessment/Plan Assessment/Plan A/P: Acute on chronic lower back pain - S/p lumbar laminectomy, L3, L4, L5, with removal of epidural lipomatosis and decompression of dura and nerve roots with transforaminal exposure, left L4-L5 with decompression of the left L4 root and removal of synovial cyst. Acute alcohol withdrawal - given his heavy alcohol use history not previously di sclosed place on CIWA protocol, given thiamine, folate, MVI. Will add gabapentin to reduce ETOH urge Tremors - likely essential tremor patient has been self medicating at home effectively with alcohol, gives a convincing history of this BPH - on cialis Gout - no recent flares Hypothyroidism - cont home levothyroxine FEN - General diet PPX - scds FULL CODE Dispo - inpatient Thank you for the consult, we will continue to follow while inpatient. Alcohol withdrawal can take up to 96 hours to resolve with treatment and this may require a prolonged inpatient stay not related to the surgery. Can call for questions, assistance or once surgical issues resolve to transfer to medicine service if necessary KIM GUSTAFSON MD Jun 09, 2021 23:11
[2021-06-10] MEDS: oxyCODONE/APAP 5/325 1 TAB TABLET PO PRN ×2 (00:54→10:50)
[2021-06-10] MEDS: GABAPENTIN 300 MG CAPSULE. PO SCH ×2 (00:54→08:39)
[2021-06-10 00:56] LABS: AMPHETAMINE/METHAMPHETAMINE NEG (NEG); BARBITURATES NEG (NEG); BENZODIAZEPINES POS (NEG); CANNABINOIDS NEG (NEG); COCAINE NEG (NEG); METHADONE NEG (NEG); OPIATES POS (NEG); PHENCYCLIDINE NEG (NEG)
[2021-06-10 03:00] VITALS: BP 174/91
[2021-06-10] MEDS ORDERED: LEVOTHYROXINE 150 MCG TABLET PO SCH (06:00)
[2021-06-10 06:11] LABS: BASO % 0 % (0-3); EOS % 0 % (0-3); HEMATOCRIT 37.4 % (39.0-53.0); HEMOGLOBIN 12.7 g/dL (13.0-17.5); LYMPH # 0.2 x10^3/uL (1.0-4.8); LYMPH % 3 % (24-48); MEAN CORPUSCULAR HEMOGLOBIN 34 pg (25-35); MEAN CORPUSCULAR HGB CONC 34 g/dL (31-37); MEAN CORPUSCULAR VOLUME 99 fL (79-100); MONO # 0.8 x10^3/uL (0.0-1.1); MONO % 13 % (0-9); NEUT # 5.3 x10^3/uL (1.8-7.7); NEUT % 84 % (31-73); PLATELET COUNT 102 x10^3/uL (140-400); RED BLOOD COUNT 3.78 x10^6/uL (4.30-5.70); RED CELL DISTRIBUTION WIDTH 11.9 % (11.5-14.5); WHITE BLOOD COUNT 6.3 x10^3/uL (4.0-11.0)
[2021-06-10 06:18] LABS: ALBUMIN 3.5 g/dL (3.4-5.0); ALBUMIN/GLOBULIN RATIO 0.9 (1.0-1.7); CALCIUM 9.2 mg/dL (8.5-10.1); CREATININE 0.6 mg/dL (0.7-1.3); GFR 139.4; POTASSIUM 3.9 mmol/L (3.5-5.1); TOTAL BILIRUBIN 1.2 mg/dL (0.2-1.0); TOTAL PROTEIN 7.6 g/dL (6.4-8.2)
[2021-06-10 07:15] VITALS: BP 180/85
[2021-06-10] MEDS: FOLIC ACID 1 MG TABLET. PO SCH (08:39)
[2021-06-10] MEDS: MULTIVITAMIN with MINERAL TABLET. PO SCH (08:39)
[2021-06-10] MEDS: DOCUSATE SODIUM 100 MG CAPSULE. PO SCH (08:39)
[2021-06-10] MEDS: THIAMINE 100 MG TABLET. PO SCH (08:39)
[2021-06-10] MEDS ORDERED: MULTIVITAMIN with MINERAL TABLET. PO SCH (09:00)
[2021-06-10 10:46] VITALS: BP 123/77
[2021-06-10 12:09] LABS: % BANDS 6 % (0-9); % LYMPHS 6 % (24-48); % MONOS 9 % (0-10); % SEGS 79 % (35-66)
[2021-06-10 12:16] LABS: PLT ESTIMATE ADEQUATE (ADEQUATE)
[2021-06-10] MEDS ORDERED: DOCU-109 PO (12:48)
[2021-06-10] MEDS ORDERED: OXYC1TAB15 PO (12:48)
[2021-06-10] MEDS ORDERED: METH-562 PO (12:48)
--- NOTE | 2021-06-10 12:50 | DISCH ---
DISCHARGE INSTRUCTIONS Condition on Discharge Condition on Discharge: Stable Activity After Discharge Activity Instructions for Disc: Resume previous activity, Activity as tolerated Other activity instructions: no driving for a week Bathing Instructions: Shower-keep dressing dry Lifting Instructions after Dis: No heavy lifting, No pulling or pushing, Do not lift >10 pounds Diet after Discharge Additional Diet Restrictions: resume home diet Wound Incision Care Wound/Incision Care: Ice to area for comfort Other wound/incision instructi: may remove dressing in 48 hours if dry, leave steri strips in place if poss Contacting the DRDannie after DC Call your doctor for: Concerns you may have Follow-Up Follow up with: Dr. Leal's nurse in 2 weeks [phone] ALBANIA LEAL MD Jun 10, 2021 12:50
--- NOTE | 2021-06-10 14:20 | NUR ---
Discharge instructions given. Answered questions and concerns. Verbalized understanding. Demonstrated to pt's how to change dressing. Extra supplies given. Pt discharged home escorted out by w/c.
--- NOTE | 2021-06-10 16:07 | PDOC ---
[facility] PROGRESS NOTE Date of Service DOS: DATE: 06/10/21 TIME: 10:04 Chief Complaint Chief Complaint Assessment/Plan A/P: Acute on chronic lower back pain - S/p lumbar laminectomy, L3, L4, L5, with removal of epidural lipomatosis and decompression of dura and nerve roots with transforaminal exposure, left L4-L5 with decompression of the left L4 root and removal of synovial cyst. Acute alcohol withdrawal -OK for discharge. Would recommend to continue gabapentin for another 7 days if patient is planning on stopping to drink BPH - on cialis Gout - no recent flares Hypothyroidism - cont home levothyroxine OK for discharge FEN - General diet PPX - scds FULL CODE Dispo - inpatient History of Present Illness History of Present Illness 55-year-old male with PMHx BPH, gout, and hypothyroidism admitted for worsening back pain worse upon standing, has failed outpatient conservative measures with LESI x2 and was admitted for progression of the pain requiring increasing outpatient doses of opioids increased from tylenol #3 to hydrocodone 5mg and is now status post L3-4-5 lumbar laminectomy. Seen postoperatively in consultation for worsening tremors and anxiety. He notes he was not 100% clear about his alcohol intake drinks more than 8 beers per day and usually upwards of 12. He is never experienced alcohol withdrawal but he does notice if he goes more than 4 hours without a drink for the morning he has tremors that affect his writing. No immediate postoperative complications noted patient feels his pain is actually better controlled now His tremors and anxiety are the worst of his symptoms. He feels a little short of breath as well. Not hypoxic 06/10/21 Patient seen and examined bedside. Working well with PT. No agitative ro withdrawal episodes overnight. OK for discharge from hospitalist point of view. Vitals/I&O Vitals/I&O: Vital Signs Date Time Temp Pulse Resp B/P (MAP) Pulse Ox O2 Delivery O2 Flow Rate FiO2 06/10/21 11:20 Room Air 06/10/21 10:46 97.7 90 18 123/77 (92) 96 97.7 06/09/21 14:35 10 I & O 06/09/21 06/09/21 06/10/21 15:00 23:00 07:00 Intake Total 1550 ml Output Total 100 ml Balance -100 ml 1550 ml Physical Exam General: Alert, Oriented X3, Cooperative, moderate distress Heart: Regular rate, Normal S1, Normal S2, No murmurs Abdomen: Normal bowel sounds, Soft, No tenderness, No hepatosplenomegaly, No masses Extremities: No clubbing, No cyanosis, No edema, Normal pulses, No tenderness/swelling Skin: No rashes, No breakdown Labs Labs: Laboratory Tests Test 06/10/21 00:30 06/10/21 04:45 Urine Opiates Screen Pos (NEG) Urine Methadone Screen Neg (NEG) Urine Barbiturates Neg (NEG) Urine Phencyclidine Screen Neg (NEG) Urine Amphetamine/Methamphetamine Neg (NEG) Urine Benzodiazepines Screen Pos (NEG) Urine Cocaine Screen Neg (NEG) Urine Cannabinoids Screen Neg (NEG) Urine Ethyl Alcohol Neg (NEG) White Blood Count 6.3 x10^3/uL (4.0-11.0) Red Blood Count 3.78 x10^6/uL (4.30-5.70) Hemoglobin 12.7 g/dL (13.0-17.5) Hematocrit 37.4 % (39.0-53.0) Mean Corpuscular Volume 99 fL (79-100) Mean Corpuscular Hemoglobin 34 pg (25-35) Mean Corpuscular Hemoglobin Concent 34 g/dL (31-37) Red Cell Distribution Width 11.9 % (11.5-14.5) Platelet Count 102 x10^3/uL (140-400) Neutrophils (%) (Auto) 84 % (31-73) Lymphocytes (%) (Auto) 3 % (24-48) Monocytes (%) (Auto) 13 % (0-9) Eosinophils (%) (Auto) 0 % (0-3) Basophils (%) (Auto) 0 % (0-3) Neutrophils # (Auto) 5.3 x10^3/uL (1.8-7.7) Lymphocytes # (Auto) 0.2 x10^3/uL (1.0-4.8) Monocytes # (Auto) 0.8 x10^3/uL (0.0-1.1) Eosinophils # (Auto) 0.0 x10^3/uL (0.0-0.7) Basophils # (Auto) 0.0 x10^3/uL (0.0-0.2) Segmented Neutrophils % 79 % (35-66) Band Neutrophils % 6 % (0-9) Lymphocytes % 6 % (24-48) Monocytes % 9 % (0-10) Platelet Estimate Adequate (ADEQUATE) Sodium Level 137 mmol/L (136-145) Potassium Level 3.9 mmol/L (3.5-5.1) Chloride Level 98 mmol/L (98-107) Carbon Dioxide Level 27 mmol/L (21-32) Anion Gap 12 (6-14) Blood Urea Nitrogen 9 mg/dL (8-26) Creatinine 0.6 mg/dL (0.7-1.3) Estimated GFR (Cockcroft-Gault) 139.4 BUN/Creatinine Ratio 15 (6-20) Glucose Level 148 mg/dL (70-99) Calcium Level 9.2 mg/dL (8.5-10.1) Total Bilirubin 1.2 mg/dL (0.2-1.0) Aspartate Amino Transf (AST/SGOT) 95 U/L (15-37) Alanine Aminotransferase (ALT/SGPT) 64 U/L (16-63) Alkaline Phosphatase 69 U/L (46-116) Total Protein 7.6 g/dL (6.4-8.2) Albumin 3.5 g/dL (3.4-5.0) Albumin/Globulin Ratio 0.9 (1.0-1.7) Comment Review of Relevant I have reviewed the following items celena (where applicable) has been applied. Medications: Current Medications Medications (Trade) Dose Ordered Sig/Juanjose Route PRN Reason Start Time Stop Time Status Last Admin Dose Admin Levothyroxine Sodium (Synthroid) 150 mcg DAILY06 PO 06/10/21 06:00 06/10/21 14:43 DC 06/10/21 08:39 Docusate Sodium (Colace) 100 mg BID PO 06/09/21 21:00 06/10/21 14:43 DC 06/10/21 08:39 Zolpidem Tartrate (Ambien) 5 mg 1X PRN PRN PO INSOMNIA, MAY REPEAT X1 06/09/21 22:15 06/10/21 14:43 DC 06/10/21 00:57 Multivitamins (Thera M Plus) 1 tab DAILY PO 06/09/21 23:00 06/10/21 14:43 DC 06/10/21 08:39 Folic Acid (Folic Acid) 1 mg DAILY PO 06/09/21 23:00 06/10/21 14:43 DC 06/10/21 08:39 Thiamine Mononitrate (Vitamin B-1) 100 mg DAILY PO 06/09/21 23:00 06/10/21 14:43 DC 06/10/21 08:39 Lorazepam (Ativan) 2 mg PRN Q1HR PRN PO For CIWA 8-14 06/09/21 22:30 06/10/21 14:43 DC 06/10/21 08:43 Gabapentin (Neurontin) 300 mg TID PO 06/10/21 01:00 06/10/21 14:43 DC 06/10/21 08:39 Justifications for Admission Other Justification VANESSA BLACKBURN MD Jun 10, 2021 16:07
--- NOTE | 2021-06-10 17:57 | DS ---
DATE OF DISCHARGE: 06/10/2021 DISCHARGE DIAGNOSES: Lumbar spinal stenosis/epidural lipomatosis at L3 through L5 with synovial cyst at L4-5, left. OPERATIONS PERFORMED: Lumbar laminectomy at L3, L4, L5 with removal of epidural lipomatosis and decompression of dura and nerve root with transforaminal exposure, left L4-5 with decompression of the left L4 root and removal of synovial cyst. HISTORY OF PRESENT ILLNESS: The patient is a pleasant 55-year-old man who developed intractable back pain and was found to have the above-mentioned findings and I recommended a lumbar laminectomy. I spoke with him about the surgery and the risks and the postoperative course. He wished to go ahead. HOSPITAL COURSE: He was admitted to the floor postoperatively. He has been up ambulating in the room and in the halls. Physical therapy was initiated and instruction was given to him regarding his activities. His pain is well controlled and he is in good condition to discharge home. DISCHARGE MEDICATIONS: He will resume his medications per the MRAD. DISCHARGE INSTRUCTIONS: He was instructed regarding incision care, activity restrictions and expectations for the next several weeks. He will follow up in our office in 2 weeks. He understands to call us with any questions or concerns. He will follow up with his primary care doctor as well. He was cautioned about pain medications and alcohol use. He understands to call us with any questions or concerns. JUAN DR: Ct TID: [id number]
--- NOTE | 2021-06-11 15:33 | PATHOLOGY ---
[facility] Accession Number: [id number] . 01 Material submitted: . vertebral column - LUMBAR DECOMPRESSION AND SYNOVICAL CYST . 01 Clinical history: . LUMBAR STENOSIS, SYNOVIAL CYST, EPIDURAL LIPOMATOSIS LUMBAR LAMINECTOMY L3-4, L4-5 WITH REMOVAL OF SYNOVICALCYST L4-5 . 02 Diagnosis: Segments of fibrocartilaginous, adipose, skeletal muscle, and synovial tissue and bone, lumbar decompression and synovial cyst: - Degenerative changes of fibrocartilaginous tissue. - Synovial cyst. (JPM:lb; 06/11/2021) MBR 06/11/2021 1417 Local . 02 Comment: There is no evidence of an acute inflammatory process or malignancy. (JPM:lb; 06/11/2021) . 02 Electronically signed: . Hussein Magana MD, Pathologist NPI- [id number] . 01 Gross description: . The specimen is received in formalin, labeled "Enrrique Torres, lumbar decompression and synovial cyst". Received are multiple segments of pale loya to pink-loya fibrous tissue admixed with fragments of gritty bone and pink-loya soft tissue measuring 6.0 x 5.8 x 0.8 cm in aggregate dimensions. The specimen is submitted representatively in cassette A1, following light decalcification. ([facility]; 06/10/2021) NRI/NRI 06/11/2021 1049 Local . 02 Pathologist provided ICD-10: M51.36, M71.38 . 02 CPT . 610894, [id number] Specimen Comment: A courtesy copy of this report has been sent to [phone], [phone] Specimen Comment: [id number] Specimen Comment: Report sent to / DR CARRILLO Specimen Comment: A duplicate report has been generated due to demographic updates. Performed at: 01 [facility] [id number] [facility] [address], [place] [id number] MD Titus Velez MD Phone: [phone] Performed at: 02 [facility] [address] [place], [place] [id number] MD Hussein Magana MD Phone: [phone]
== END 2021-06-10 14:15 | disposition home or self-care (01) ==
LOC: SURG 07:17 → 4 NORTH 13:12
PROVIDERS: ADMIT Neurological Surgery; ATTEND Neurological Surgery
DX: M48.062 Spinal stenosis, lumbar region with neurogenic claudication (principal); E03.9 Hypothyroidism, unspecified; E88.2 Lipomatosis, not elsewhere classified; F10.239 Alcohol dependence with withdrawal, unspecified; F41.9 Anxiety disorder, unspecified; E78.00 Pure hypercholesterolemia, unspecified; G25.0 Essential tremor; G89.29 Other chronic pain; M10.9 Gout, unspecified; M71.38 Other bursal cyst, other site; N40.0 Benign prostatic hyperplasia without lower urinary tract symptoms; Z79.899 Other long term (current) drug therapy; Z98.890 Other specified postprocedural states
CPT/HCPCS: 36415; 63047; 63048; 80053; 80307; 85007; 85025; 88304; 88311; A4364; A4556; A4930; A6254; A6257; A6258; G0378; G0379; J0330; J0690; J1100; J1170; J1885; J2250; J2370; J2405; J2704; J2710; J3010; J3480; J3490; J7030; 76000; A4222; A4223; A4452; A4657